=== PATIENT | male | born 1930 | race Caucasian/White ===

== ENCOUNTER 2018-02-16 11:24 | Outpatient (CLI) | payer MEDICARE, BC ==
[2018-02-16 13:08] LABS: Hemoglobin 15.1 g/dL (14.0-18.0); Mean Corpuscular HGB CONC 36.2 g/dL (32.0-36.0); Mean Corpuscular Hemoglobin 35.7 pg (27.0-31.0); Mean Corpuscular Volume 98.7 fL (78.0-98.0); Mean Platelet Volume 6.5 fL (7.4-10.4); Platelet Count 189 thou/uL (130-400); RBC Distribution Width 13.2 % (11.5-14.5); Red Blood Cell (RBC) Count 4.24 mill/uL (4.70-6.10); White Blood Cell (WBC) Count 8.6 thou/uL (4.8-10.8)
[2018-02-16 13:43] LABS: Anion Gap 14 mmol/L (10-20); BUN (Urea Nitrogen) 11 mg/dL (8.4-25.7); Calc. Creatinine Clearance 0 mL/min (70-130); Calcium 9.6 mg/dL (7.8-10.44); Carbon Dioxide 24 mmol/L (23-31); Chloride 104 mmol/L (98-107); Estimated GFR-MDRD 90; Glucose 99 mg/dL (83-110); Potassium 4.2 mmol/L (3.5-5.1); Sodium 138 mmol/L (136-145)
== END 2018-02-16 11:25 | disposition home or self-care (01) ==
LOC: LABBT 11:24
PROVIDERS: ATTEND Neurological Surgery
DX: Z01.812 Encounter for preprocedural laboratory examination (principal); M54.16 Radiculopathy, lumbar region
CPT/HCPCS: 80048; 85027

== ENCOUNTER 2018-02-22 09:00 | Day surgery (SDC) | payer MEDICARE, BC ==
[2018-02-16 12:02] VITALS: BMI 26.4
--- NOTE | 2018-02-22 00:48 | HP ---
HISTORY OF PRESENT ILLNESS: Mr. Mata is a very pleasant 88-year-old gentleman referred to us by Dr. Wilson for evaluation of right-sided lower extremity radiculopathy, mostly sitting in L4 pattern. He does seem to have what could be peripheral neuropathy in the way of a peroneal nerve impingement s yndrome. He does have an NCV that supports this. He denies any left lower extremity symptoms whatso ever. Pain is most significant with standing for periods of time and he feels that his back and legs are to lock up. He is able to exercise and go to the gym 5 days a week and actually feels . T emery, he has tried physical therapy and epidural steroid injections which do help the symptoms; howev er, not in any extended way. PAST MEDICAL HISTORY: Significant for glaucoma and hypertension. CURRENT MEDICATIONS: Diltiazem, Azopt, timolol and Travatan. ALLERGIES: POLLEN and IODINE. PAST SURGICAL HISTORY: Right knee replacement. PHYSICAL EXAMINATION: NEUROLOGIC: Patient is alert and oriented x3. Gait is mildly antalgic somewhat of an orthopedic gai t favoring the right leg when he did have total knee replacement a year ago. He has excellent motor strength bilaterally, 5/5 in all muscle groups in the lower extremities. He is negative for any clon us in the ankles bilaterally. Achilles and patellar reflexes are intact. Negative straight leg rais e bilaterally. Negative Jonah's test bilaterally. ASSESSMENT: Lumbar radiculopathy. PLAN: Dr. Salazar met with the patient, reviewed imaging ultimately advocated for an L4 and L5 decompr ession on the right. He explained to the patient the risks, benefits, alternatives of the procedure. The patient expressed understanding and would like to move forward with surgery as planned. I do charlotte pierce the patient is mentally competent and capable of making medical decisions for himself and we w ill move forward with surgery as planned. Ray Luong PA-C dictating for Dr. Salazar.
[2018-02-22] MEDS ORDERED: CEFAZOLIN/Water 2 GM/20 ML SYRINGE ONE ×2 (10:13→14:58)
[2018-02-22] MEDS ORDERED: Bupivacaine HCl 0.5%/Epinephrine 1:200,000/PF 30 ml Vial ONE (11:04)
[2018-02-22] MEDS ORDERED: Acetaminophen/Codeine 30-300mg Tablet ONE (13:50)
[2018-02-22] MEDS ORDERED: Lidocaine 1% PF 5 ML VIAL ONE (15:09)
[2018-02-22] MEDS ORDERED: PROPOFOL 200 MG/20 ML VIAL ONE (15:09)
[2018-02-22] MEDS ORDERED: ePHEDrine/0.9% NaCl/PF SYRINGE 50 mg/10 ml ONE (15:09)
--- NOTE | 2018-02-23 13:43 | OP ---
DATE OF PROCEDURE: 02/22/2018 SURGEON: Liban Salazar M.D. DRY KILN LOADER: Ray Luong PA-C. INDICATION: Pain. DIAGNOSES: Lumbar stenosis, lumbar radiculopathy. PROCEDURE: Right L4-5 facetectomy, decompression. ANESTHESIA: General. TECHNIQUE: The patient was brought into the operating room and placed under general anesthesia. He was flipped from a supine or prone position on the operating room table. A linear incision was plann ed over the L4-L5 segment. After prepping and draping and after an appropriate operative pause, the incision was created. The soft tissues were swept right of midline. A self-retaining retractor was placed in the wound for optimal exposure. After confirming the appropriate level with C-arm fluorosc opy, a high-speed cutting drill bit as well as 2, 3, and 4 mm Kerrisons used to perform a laminectomy along L4 and L5. The L4 and L5 pedicles were identified and a facetectomy was performed of the exit ing L4 nerve root until the exiting L4 nerve root was well-decompressed. The wound was irrigated. H emostasis was maintained throughout. The wound was then closed in anatomic layers and a pressure alla ssing was applied. There were no known procedural complications.
== END 2018-02-22 15:20 | disposition home or self-care (01) ==
LOC: SDC 09:00
PROVIDERS: ATTEND Neurological Surgery
PROC: 01NB0ZZ Release Lumbar Nerve, Open Approach (ICD-10-PCS; principal; 2018-02-22)
DX: M48.061 Spinal stenosis, lumbar region without neurogenic claudication (principal); M54.16 Radiculopathy, lumbar region; I10 Essential (primary) hypertension; H40.9 Unspecified glaucoma; Z91.041 Radiographic dye allergy status; Z79.82 Long term (current) use of aspirin; Z79.899 Other long term (current) drug therapy
CPT/HCPCS: 76001; 96374; J0670; J2001; J2704

== ENCOUNTER 2018-05-05 12:46 | Outpatient (CLI) | payer MEDICARE, BC ==
--- NOTE | 2018-05-05 14:49 | MRI ---
MRI OF THE LUMBAR SPINE: Date: 05-05-18 Comparison: None. History: Bilateral leg weakness. Numbness in bilateral hands, right greater than left, cervical radic ulopathy. Technique: Multiplanar, multisequence MR imaging of the cervical spine is provided without contrast. FINDINGS: The sagittal STIR imaging demonstrates no focal area of osseous marrow edema. There is mild edematous change on the basis of prominent degenerative facet disease on the right at C3-4. There is degenerative change at the atlantoaxial interspace. There is degenerative panus posterior to the dens. C2-3: There is disc desiccation with bilateral facet and uncal vertebral osteophyte formation. There is severe right and mild left neural foraminal stenosis. C3-4: There is disc space narrowing, disc desiccation and a disc osteophyte complex with severe centr al canal stenosis and a degree of cord compression. There is severe bilateral neural foraminal stenos is on the basis of facet uncal vertebral osteophyte formation. C4-5: Disc space narrowing, degenerative endplate change, anterior osteophyte formation and disc oste ophyte complex present with severe central canal stenosis. Severe bilateral neural foraminal stenosis on the basis of facet and uncal vertebral osteophyte formation noted. C5-6: Disc space narrowing, disc desiccation, degenerative endplate change and anterior osteophyte fo rmation and disc osteophyte complex present with severe central canal stenosis. There is severe bilat eral facet and uncal vertebral osteophyte formation with associated severe bilateral neural foraminal stenosis. C6-7: Anterolisthesis is noted measuring in the 4-5 mm range. There is disc space narrowing and disc desiccation. No significant central canal stenosis. Bilateral facet and uncal vertebral osteophyte fo rmation noted. Mild right and moderate/severe left neuroforaminal stenosis. C7-T1: There is disc desiccation and mild disc space narrowing. There is facet and uncal vertebral os teophyte formation, left greater than right. Mild right and moderate left neural foraminal stenosis. No significant central canal stenosis. There is subtle increased T2 signal intensity within the cervical cord posterior to the C3 vertebral body and at the axial level of the C3-4 intervertebral disc interspace. No discrete cord expansion is seen. IMPRESSION: Severe degenerative changes within the cervical spine with multilevel severe central canal and neural foraminal stenosis. There is also increased signal intensity within the cervical cord posterior to t he C3 vertebral body and at the axial level of the C3-4 intervertebral disc. This could represent mye lomalacia or cord edema on the basis of compressive myelopathy. Clinical correlation is essential. Claudia T
--- NOTE | 2018-05-05 18:21 | MRI ---
MRI LUMBAR SPINE NONCONTRAST: DATE: 05/05/18 HISTORY: 88-year-old male with low back pain and "persistent weakness, of lower extremities. Status post L4-5 facetectomy, decompression. COMPARISON: None. FINDINGS: All of the images are degraded by patient motion. The urinary bladder is distended. For the purposes of this report, it will be assumed that there are five lumbar type vertebrae. There are broad, irregu lar indentations of superior and inferior end plates associated with high grade disc space narrowing, and diffuse disc bulge/osteophytic bar complexes at L2-3, L3-4, L4-5, and L5-S1 that protrude into t he anterior aspect of the spinal canal. There are degenerative facet changes throughout the lumbar sp ine, which are mild to moderate at L2-3, moderate at L3-4, and moderate to severe at L4-5 and L5-S1. Conus medullaris terminates at L1-2. The findings by individual levels are as follows: T12-L1: No central or neural foraminal stenosis. Essentially normal. L1-2: Mild disc bulge. No central stenosis. Moderate bilateral neural foraminal stenosis. L2-3: Moderate to severe central spinal canal stenosis. Prominent posterior epidural fat pad. Very se tiarra thecal sac stenosis. Mild to moderate right neural foraminal stenosis. Moderate left neural fora camron stenosis. L3-4: Severe central spinal canal stenosis. Very severe thecal sac stenosis. Severe right neural fora camron stenosis. Moderate to severe left neural foraminal stenosis. L4-5: There is irregularly shaped fluid signal in the soft tissues of the right posterior paraspinal paramedian musculature, posterior to the right posterior elements. This is surrounded by edema in the soft tissues. Ligamentum flavum thickening. Right laminectomy and/or partial right facetectomy schultz es. Somewhat severe central spinal canal stenosis. Somewhat severe thecal sac stenosis also. Very sev ere right neural foraminal stenosis, with complete effacement of right neural foraminal fat signal. M oderate to severe left neural foraminal stenosis. There is bone marrow edema in the right pedicles of L4 and especially L5, and in the right L4 and L5 facet complex. There is fluid throughout the right L4-5 facet joint space. L5-S1: High grade lateral recess stenosis bilaterally. Moderate central spinal canal stenosis. Very s evere bilateral neural foraminal stenosis with chronic compression of bilateral exiting L5 nerve root s. IMPRESSION: 1. 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 2. Severe central spinal canal stenosis, severe neural foraminal stenosis, and severe lateral re cess stenosis, at multiple levels. 3. Soft tissue edema and right posterior element bone marrow edema, plus right facet joint effus ion, at L4-5, presumably representing recent right facetectomy/laminectomy changes and right facet ar thritis. Difficult to distinguish/ rule out superimposed infection from recent post surgical changes and facet arthritis. 4. The evaluation is limited without IV gadolinium contrast, such that it is very difficult to d istinguish recurrent or residual herniated disc material from postsurgical scar tissue. 5. Distended urinary bladder, raising the possibility of cauda equina syndrome. FAYE Fajardo POS: EITAN
== END 2018-05-05 12:47 | disposition home or self-care (01) ==
LOC: MRI 12:46
PROVIDERS: ATTEND Physical Medicine & Rehabilitation
DX: R53.1 Weakness (principal); I10 Essential (primary) hypertension; M47.896 Other spondylosis, lumbar region; M51.36 Other intervertebral disc degeneration, lumbar region; M48.061 Spinal stenosis, lumbar region without neurogenic claudication; M99.83 Other biomechanical lesions of lumbar region; R60.0 Localized edema; M25.48 Effusion, other site; N32.89 Other specified disorders of bladder; M47.892 Other spondylosis, cervical region; M48.02 Spinal stenosis, cervical region; M99.81 Other biomechanical lesions of cervical region; R93.7 Abnormal findings on diagnostic imaging of other parts of musculoskeletal system
CPT/HCPCS: 72141; 72148

== ENCOUNTER 2018-05-10 08:55 | Inpatient (IN) | payer MEDICARE, BC ==
--- NOTE | 2018-05-10 00:40 | HP ---
HISTORY OF PRESENT ILLNESS: Mr. Mata is a pleasant 88-year-old gentleman who is known to us for surgical decompression of the lumbar spine earlier this year for some right lower extremity weakness who unfortunately has had a protracted course of continued weakness, gait instabilities, and now most acutely some upper extremity dysfunction and weakness approximately in the bilateral upper extremiti es. He has been in and out of rehab and ultimately had an MRI of the cervical spine performed that r eveals profound cervical spine stenosis from C3 to C5 with signal change in the cord at C3-C4 and thi s also my explain his slow progression to recovery and his more recent myelopathic symptoms. PAST MEDICAL HISTORY: Glaucoma, hypertension. CURRENT MEDICATIONS: Diltiazem, Azopt, timolol, and Travatan. ALLERGIES: IODINE. PAST SURGICAL HISTORY: Right knee replacement and lumbar decompression. PHYSICAL EXAMINATION: The patient is alert and oriented x3. Gait is ataxic and unsteady. He is in a wheelchair during our discussions today. 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 He is only able to get to about the neutral position as he raises his arms up and has a significant amount of weakness to resistive move ment. He does have clumsiness with his fine motor control, but otherwise is well-appearing. ASSESSMENT: Cervical myelopathy. PLAN: Dr. Salazar met with the patient, reviewed imaging and advocated for a C3 through C5 posterior c ervical decompression. He explained to the patient the risks, benefits, and alternatives to the proc edure. The patient expressed understanding and would like to move forward with surgery as discussed.
[2018-05-10] MEDS ORDERED: CEFAZOLIN/Water 2 GM/20 ML SYRINGE ONE (09:13)
[2018-05-10] MEDS ORDERED: Midazolam HCl 2 mg/2 ml Vial ONE (09:35)
[2018-05-10] MEDS ORDERED: Fentanyl 100 MCG/2 ML VIAL ONE ×3 (09:35→14:19)
[2018-05-10] MEDS ORDERED: Bupivacaine HCl 0.5%/Epinephrine 1:200,000/PF 30 ml Vial ONE (11:27)
[2018-05-10] MEDS ORDERED: Thrombin 5000 UNITS/5 ML VIAL ONE (11:27)
[2018-05-10] MEDS ORDERED: Bacitracin Zinc Ointment 30 gm TUBE ONE (11:27)
--- NOTE | 2018-05-10 13:36 | OP ---
DATE OF PROCEDURE: 05/10/2018 SURGEON: Liban Salazar M.D. MOTOR EQUIPMENT SERGEANT: Celestino Luong PA-C INDICATION: Prevent neurologic decline. DIAGNOSIS: Cervical spondylitic myelopathy. PROCEDURE: Posterior cervical laminectomy C3-C5. ANESTHESIA: General. TECHNIQUE: The patient was brought into the operating room and placed under general anesthesia. A 3 -point Hagan ra was applied to his head where he was then flipped from a supine to a prone pos ition and secured to the table in a neutral position. A linear incision was planned over the posteri or aspect of the cervical spine. After prepping and draping and after an appropriate operative pause , the incision was created. The soft tissues were swept away from midline. Self-retaining retractor s were placed in the wound for optimal exposure. After confirming the appropriate levels with C-arm fluoroscopy, an Adson rongeur as well as 1 and 2 mm Kerrisons were used to perform a laminectomy exte nding from C3 through C5. After decompressing these segments, the wound was irrigated. Hemostasis w as maintained throughout. The wound was then closed in anatomic layers and a pressure dressing was a pplied. There were no known procedural complications.
--- NOTE | 2018-05-10 13:44 | PRG ---
DATE OF SERVICE: 05/10/2018 Mr. Mata is an 88-year-old gentleman known to me for a lumbar laminectomy for lumbar radicular pa in. In the postoperative setting, he had resolution of his pain symptoms. He was slow to get around in the postoperative setting and we advocated for inpatient rehab. He went to inpatient rehab and d uring his inpatient rehabilitation stay we were notified of progression of weakness that only involve d his legs, but also started to impact the upper extremities. This prompted an MRI of the cervical s pine which revealed a high grade cervical stenosis with underlying signal change within the cervical spine. Mr. Mata met with Ray Luong in our clinic and subsequently with me to discuss his d iagnosis, his imaging and the plan for surgery which is a posterior cervical decompression. Of note, today when meeting Mr. Mata, he feels like his symptoms have slightly improved, particul amada when he wears a cervical spine collar. It may be that he has some intrinsic spinal instability. Our plan from a surgical approach is a decompression without fusion. Of note, he has had a few fal ls in the last couple weeks, which may have been the inciting factor in his underlying spinal cord in jury. Our plan postoperatively will be admission to the hospital with plans towards return to inpatient [facility] in order to build his strength and endurance.
[2018-05-10] MEDS ORDERED: Milk Of Magnesia 30 ML UDCUP PO PRN (13:57)
[2018-05-10] MEDS ORDERED: Acetaminophen 325 MG TAB PO PRN (13:57)
[2018-05-10] MEDS ORDERED: Acetaminophen/Codeine 30-300mg Tablet PO PRN (13:57)
[2018-05-10] MEDS ORDERED: Ondansetron HCl/PF 4 MG/2 ML Vial IVP PRN (13:57)
[2018-05-10] MEDS ORDERED: diphenhydrAMINE 50 MG/ML VIAL IVP PRN (13:57)
[2018-05-10] MEDS: Acetaminophen/Codeine 30-300mg Tablet PO PRN ×2 (16:15→22:51)
[2018-05-10] MEDS: Sodium Chloride 0.9% 1,000 ML IV SCH (16:50)
[2018-05-10] MEDS ORDERED: Ondansetron HCl/PF 4 MG/2 ML Vial ONE (17:07)
[2018-05-10] MEDS ORDERED: Lidocaine 1% PF 5 ML VIAL ONE (17:07)
[2018-05-10] MEDS ORDERED: PROPOFOL 200 MG/20 ML VIAL ONE (17:07)
[2018-05-10] MEDS ORDERED: ePHEDrine/0.9% NaCl/PF SYRINGE 50 mg/10 ml ONE (17:07)
[2018-05-10] MEDS ORDERED: Dexamethasone 20 MG/5 ML VIAL ONE (17:07)
[2018-05-10 17:39] VITALS: BMI 26.4
[2018-05-10] MEDS: CEFAZOLIN/Water 2 GM/20 ML SYRINGE SLOW IVP SCH (19:53)
[2018-05-10] MEDS ORDERED: [UNRECOGNIZED DRUG - OTHER] PO SCH (22:45)
[2018-05-11] MEDS: Sodium Chloride 0.9% 1,000 ML IV SCH ×2 (03:46→17:15)
[2018-05-11] MEDS: CEFAZOLIN/Water 2 GM/20 ML SYRINGE SLOW IVP SCH (03:49)
[2018-05-11] MEDS: Tamsulosin HCl 0.4 MG CAP PO SCH (05:08)
[2018-05-11] MEDS: Polyethylene Glycol 3350 17 GM Packet PO SCH (09:46)
[2018-05-11] MEDS ORDERED: Polyethylene Glycol 3350 17 GM Packet PO SCH (11:00)
[2018-05-11] MEDS ORDERED: Sildenafil Citrate 20 MG TAB PO PRN (11:16)
[2018-05-11] MEDS ORDERED: Lorazepam 1 MG TAB PO PRN (11:19)
[2018-05-11] MEDS: Timolol 0.5% Ophth Soln 5 ml Bottle EA EYE SCH (12:52)
--- NOTE | 2018-05-11 14:38 | PQF ---
PATRICIA HUTCHISON JAMES BRADLEY MD [id number] SURG A- [id number] CLINICAL DOCUMENTATION IMPROVEMENT CLARIFICATION FORM: ICD-10 Updated PLEASE DO AN ADDENDUM TO THE PROGRESS NOTE WITH ANY DOCUMENTATION UPDATES OR ADDITIONS AND CARRY THROUGH TO DC SUMMARY. THANK YOU. DATE: 05/11/18 ATTN: Dr. Salazar Please exercise your independent, professional judgment in responding to the clarification form. Clinical indicators are provided on the bottom of this form for your review Please check appropriate box(s): [ X ] Spinal Edema Due to: [ X ] Cervical myelopathy [ ] Other diagnosis [ ] Unable to determine In addition, please specify: Present on Admission (POA): [ X ] Yes [ ] No [ ] Unable to determine For continuity of documentation, please document condition throughout progress notes and discharge summary. Thank You. CLINICAL INDICATORS - SIGNS / SYMPTOMS / LABS MRI findings per H&P reveals profound cervical spine stenosis from C3 to C5 with signal change in the cord at C3-C4 and this also may explain his slow progression to recovery and his more recent myelopathic symptoms. RISK FACTORS Of note, he has had a few falls in the last couple of weeks, which may have been the inciting factor in his underlying spinal cord injury. 05/10 (Martin) TREATMENTS: s/p Cervical laminectomy 05/10 per OP note PT/OT 05/10 orders Rehab consult 05/10 orders Thank you, Devorah (This form is maintained as a part of the permanent medical record) 2014 [employer]. All Rights Reserved Devorah Slaughter RN, BSN, [email or web address]
[2018-05-11] MEDS: Acetaminophen/Codeine 30-300mg Tablet PO PRN ×2 (15:00→21:07)
[2018-05-11] MEDS: Brinzolamide 1% Ophth Soln 10 ml Bottle EA EYE SCH ×2 (15:01→20:58)
[2018-05-11] MEDS: Baclofen 10 MG TAB PO PRN (17:16)
[2018-05-11] MEDS: Cephalexin 250 MG CAP PO SCH (20:58)
[2018-05-11] MEDS: [UNRECOGNIZED DRUG - OTHER] PO SCH (20:59)
[2018-05-11] MEDS ORDERED: Latanoprost 0.005% Ophth Soln 2.5 ml Bottle EA EYE SCH (21:00)
[2018-05-12] MEDS: Tamsulosin HCl 0.4 MG CAP PO SCH (05:46)
[2018-05-12] MEDS: Sodium Chloride 0.9% 1,000 ML IV SCH (06:04)
[2018-05-12] MEDS ORDERED: Lorazepam 1 MG TAB PO PRN ×2 (07:06→07:14)
[2018-05-12] MEDS ORDERED: SILDENAFIL CITRATE 20 MG PO PRN (07:06)
[2018-05-12] MEDS: Acetaminophen/Codeine 30-300mg Tablet PO PRN ×4 (07:39→20:24)
[2018-05-12] MEDS: Brinzolamide 1% Ophth Soln 10 ml Bottle EA EYE SCH ×3 (07:42→20:29)
[2018-05-12] MEDS: Timolol 0.5% Ophth Soln 5 ml Bottle EA EYE SCH (07:42)
[2018-05-12] MEDS: Cephalexin 250 MG CAP PO SCH ×2 (07:45→20:26)
[2018-05-12] MEDS: Polyethylene Glycol 3350 17 GM Packet PO SCH ×2 (07:46)
[2018-05-12] MEDS: Fluticasone Propionate Nasal Spray 16 gm Bottle NASAL SCH (07:46)
[2018-05-12] MEDS ORDERED: MOMETASONE FUROATE INH SCH (09:00)
[2018-05-12] MEDS ORDERED: TIMOLOL TOP SCH (09:00)
[2018-05-12] MEDS: Aspirin 81 mg Enteric Coated Tablet PO SCH (09:01)
[2018-05-12] MEDS ORDERED: Bisacodyl 5 MG TAB PO PRN (09:57)
--- NOTE | 2018-05-12 10:35 | PRG ---
DATE OF SERVICE: 05/12/2018 Mr. Mata is now postop day #2 following posterior cervical decompression. Overall, he is doing w ell. His ambulatory capabilities and strength in his bilateral upper extremities has improved tremen dously although he is still unsteady and requires walker for assistance. We are waiting on transitio n to rehab, which is anticipated for tomorrow. He does have some increased shoulder and neck pain wh ich is not unexpected given the approach for his surgery, there was some leaking from the bottom of t he incision yesterday, but his dressing is dry today. We will get the pads changed on his cervical c ollar as they are covered in some blood from yesterday. He has yet to have a bowel movement and is i nconsistently urinating. He did another in and out cath yesterday at 1600, though urinated by himsel f overnight. We will add some docusate to see if we might be able to get some of his bowel movements started today. Social Work feels like he might actually able to go to rehab today, but will still a nticipate tomorrow, but if he can go today then that would be fine by the neurosurgical team. I will put in his discharge medication list so that they can confirm with rehab that they are ready to go.
[2018-05-12] MEDS: Baclofen 10 MG TAB PO PRN (18:45)
[2018-05-12] MEDS: [UNRECOGNIZED DRUG - OTHER] PO SCH (20:34)
[2018-05-12] MEDS ORDERED: RAMELTEON 8 MG PO SCH (21:00)
[2018-05-12] MEDS ORDERED: Latanoprost 0.005% Ophth Soln 2.5 ml Bottle EA EYE SCH (21:00)
[2018-05-12] MEDS ORDERED: Non-Formulary Item 1 EACH (Travoprost [Travatan Z] 1 DROP) EA EYE SCH (21:00)
[2018-05-13] MEDS: Sodium Chloride 0.9% 1,000 ML IV SCH ×2 (01:57→07:12)
[2018-05-13] MEDS: Tamsulosin HCl 0.4 MG CAP PO SCH (06:30)
[2018-05-13] MEDS: Cephalexin 250 MG CAP PO SCH (08:16)
[2018-05-13] MEDS: Timolol 0.5% Ophth Soln 5 ml Bottle EA EYE SCH (08:17)
[2018-05-13] MEDS: Acetaminophen/Codeine 30-300mg Tablet PO PRN ×2 (08:18→12:44)
[2018-05-13 08:20] VITALS: BP 135/74
[2018-05-13] MEDS: Aspirin 81 mg Enteric Coated Tablet PO SCH (08:22)
[2018-05-13] MEDS: Polyethylene Glycol 3350 17 GM Packet PO SCH (08:22)
[2018-05-13] MEDS: Fluticasone Propionate Nasal Spray 16 gm Bottle NASAL SCH (08:23)
[2018-05-13] MEDS: Brinzolamide 1% Ophth Soln 10 ml Bottle EA EYE SCH (08:23)
[2018-05-13 10:30] VITALS: TEMP 97.8
== END 2018-05-13 13:15 | DRG 518 ==
LOC: SDC 08:55 → SURG A 15:03
PROVIDERS: ADMIT Neurological Surgery; ATTEND Neurological Surgery
PROC: 00NW0ZZ Release Cervical Spinal Cord, Open Approach (ICD-10-PCS; principal; 2018-05-10)
DX: M47.12 Other spondylosis with myelopathy, cervical region (principal); G95.19 Other vascular myelopathies; I10 Essential (primary) hypertension; R29.6 Repeated falls
CPT/HCPCS: 76001; G8978-GP-CL; G8979-GP-CI; G8987-GO-CL; G8988-GO-CJ; J0670; J1100; J2001; J2250; J2405; J2704; J3010

== ENCOUNTER 2018-06-02 07:28 | Inpatient (IN) | payer MEDICARE, BC ==
[2018-06-02 08:09] LABS: #Lymphocytes 0.8 thou/uL (1.20-3.40); #Monocytes 0.1 thou/uL (0.11-0.59); #Neutrophils 9.3 thou/uL (1.40-6.50); %Basophils 0.2 % (0.0-1.0); %Eosinophils 0.3 % (0.0-10.0); %Lymphocytes 7.4 % (21.0-51.0); %Monocytes 0.8 % (0.0-10.0); %Neutrophils 91.4 % (42.0-75.0); Hemoglobin 14.5 g/dL (14.0-18.0); Mean Corpuscular HGB CONC 35.3 g/dL (32.0-36.0); Mean Corpuscular Hemoglobin 32.9 pg (27.0-31.0); Mean Corpuscular Volume 93.3 fL (78.0-98.0); Mean Platelet Volume 6.5 fL (7.4-10.4); Platelet Count 204 thou/uL (130-400); RBC Distribution Width 12.1 % (11.5-14.5); White Blood Cell (WBC) Count 10.2 thou/uL (4.8-10.8)
[2018-06-02 08:09] LABS: Actual Bicarbonate (HCO3a) 16.6 mEq/L (22-28); Analyzer IN Cardio ER; Base Excess (BEa) -5.9 mEq/L (-2.0 to +3.0); Calcium, Ionized 1.09 mmol/L (1.12-1.30); Carboxyhemoglobin (COHb) 0.3 gm% (0.0-3.0); Hemoglobin (Hb) 13.1 g/dL (14.0-18.0); O2 Tension (PaO2) 192.9 mmHg (> 60.0); Potassium - ABG Lab 2.83 mmol/L (3.70-5.30); pH, Arterial 7.43 (7.35-7.45)
[2018-06-02 08:14] LABS: CO2 Tension 25.4 mmHg (35.0-45.0)
[2018-06-02 08:15] LABS: Puncture Site LRA
[2018-06-02 08:19] LABS: ALT (SGPT) 13 U/L (8-55); AST (SGOT) 20 U/L (5-34); Albumin 3.9 g/dL (3.4-4.8); Alkaline Phosphatase 75 U/L (40-150); Anion Gap 15 mmol/L (10-20); BUN (Urea Nitrogen) 18 mg/dL (8.4-25.7); Bilirubin, Total 1.9 mg/dL (0.2-1.2); CK (CPK) 78 U/L (30-200); Calc. Creatinine Clearance 0 mL/min (70-130); Calcium 8.8 mg/dL (7.8-10.44); Carbon Dioxide 16 mmol/L (23-31); Chloride 106 mmol/L (98-107); Estimated GFR-MDRD 84; Globulin 2.6 g/dL (2.4-3.5); Glucose 153 mg/dL (83-110); Potassium 3.3 mmol/L (3.5-5.1); Protein, Total 6.5 g/dL (5.8-8.1); Sodium 134 mmol/L (136-145)
[2018-06-02 08:34] LABS: CKMB 3.2 ng/mL (0-6.6)
[2018-06-02 08:37] LABS: Troponin I 0.531 ng/mL (< 0.028)
--- NOTE | 2018-06-02 08:42 | RAD ---
CHEST 1 VIEW PORTABLE: Date: 06/02/18 HISTORY: 88-year-old male with history of altered mental status, vomiting, incontinence and fever. Status post laminectomy. FINDINGS: Monitor leads overlie the chest. Heart size is within normal limits. There are some mild increased li near and interstitial markings bilaterally which have more of a chronic appearance. No confluent pneu monia, overt edema, or pleural effusion. IMPRESSION: No acute intrathoracic disease. Atherosclerosis of aorta with ectasia. POS: TPC
[2018-06-02 09:00] LABS: Bilirubin Negative (Negative); Blood, Urine Large (Negative); Clarity TURBID (Clear); Glucose, Urine (Dipstick) Negative (Negative); Leukocyte Large (Negative); Nitrite Positive (Negative); Protein, Urine (Dipstick) 30 mg/dL (Neg-Trace); Specific Gravity, Urine 1.012 (1.002-1.036); pH, Urine 5.5 (5.0-9.0)
[2018-06-02 09:02] LABS: Bacteria/HPF 4+ HPF (None Seen); Hyaline Casts/LPF 4-6 HYALINE CAST LPF (0-3 Hyaline); Pathc Cast-AUWi Flag 1.74 (0-2.49); Squamous Epithelial 0-3 HPF (0-3)
--- NOTE | 2018-06-02 09:02 | CT ---
HEAD CT NONCONTRAST: Date: 06/02/18 INDICATION: Altered mental status. FINDINGS: There is prominent size to the ventricular system. Moderate hypoattenuation is seen within the cerebr al white matter, indicating chronic ischemic disease. There are linear/curvilinear oriented hyperdens ities along the interhemispheric falx indicating calcification, in addition to scattered punctate int racranial calcifications, chronic in appearance. Bilateral ocular prostheses are present. There is mi ld mucosal thickening and paranasal sinuses. IMPRESSION: 1. No acute intracranial hemorrhage or mass effect. 2. Prominent size ventricles which likely relates to age-related parenchymal atrophy. 3. Moderate chronic ischemic disease. 4. Scattered intracranial calcifications, appearing chronic. POS: EITAN
[2018-06-02] MEDS ORDERED: Piperacillin/Tazobactam 4.5 GM VIAL ONE (09:11)
[2018-06-02] MEDS ORDERED: Vancomycin HCl 1.25 GM in Sodium Chloride 0.9% 250 ML 250 ML IVPB SCH (09:45)
[2018-06-02] MEDS ORDERED: Acetaminophen 325 MG Suppository ONE (09:51)
--- NOTE | 2018-06-02 09:56 | RAD ---
PELVIC RADIOGRAPH: 06/02/2018 PROVIDED CLINICAL HISTORY: Pelvic pain. FINDINGS: No evidence for fracture or other acute osseous abnormality. Alignment appears anatomic. Joint spac es appear preserved. Advanced lower lumbar degenerative changes are partially visualized. IMPRESSION: No evidence for an acute osseous abnormality. If there is persistent clinical concern, conservative management and follow-up imaging are advised. POS: Candis
--- NOTE | 2018-06-02 09:56 | RAD ---
RIGHT HIP RADIOGRAPHS TWO VIEWS: Date: 06-02-18 Provided Clinical History: Right hip pain. FINDINGS: There is no evidence for fracture or other acute osseous abnormality. If there is persistent clinical concern, conservative management and follow up imaging are advised. IMPRESSION: As above. POS: ZHANG
[2018-06-02] MEDS ORDERED: Norepinephrine 8 MG/0.9% NS 250 ML ONE (10:47)
[2018-06-02] MEDS ORDERED: Ondansetron PF 4 MG/2 ML Vial IVP PRN (11:35)
[2018-06-02] MEDS ORDERED: Norepinephrine 8 MG/0.9% NS 250 ML IVPB SCH (11:35)
[2018-06-02] MEDS ORDERED: CCU Electrolyte Replacement 1 EACH FS ONE (11:35)
[2018-06-02] MEDS ORDERED: Ondansetron ODT 4 MG TAB PO PRN (11:35)
[2018-06-02] MEDS ORDERED: Potassium Phosphate 15 MMOL in Sodium Chloride 0.9% 250 ML 250 ML IV PRN (11:44)
[2018-06-02] MEDS ORDERED: CCU ELECTROLYTE REPLACEMENT PROTOCOL FS PRN (11:44)
[2018-06-02] MEDS ORDERED: Magnesium 2 GM/NS 0.9% 100 ML 2 GM in Premix Bag 1 BAG IVPB PRN (11:44)
[2018-06-02] MEDS ORDERED: Potassium Chloride 40 MEQ in Premix Bag 1 BAG IVPB PRN (11:44)
[2018-06-02] MEDS ORDERED: Potassium Phosphate 12 MMOL in Sodium Chloride 0.9% 250 ML 250 ML IV PRN (11:44)
[2018-06-02] MEDS ORDERED: Potassium Chloride 40 MEQ in Sodium Chloride 0.9% 250 ML 250 ML IVPB PRN (11:44)
[2018-06-02] MEDS ORDERED: Magnesium Oxide 400 MG TAB PO PRN ×2 (11:44)
[2018-06-02] MEDS ORDERED: Potassium Phosphate 9 MMOL in Sodium Chloride 0.9% 100 ML IVPB PRN (11:44)
[2018-06-02 11:51] LABS: Troponin I 1.334 ng/mL (< 0.028)
--- NOTE | 2018-06-02 12:26 | CT ---
CT CHEST WITHOUT CONTRAST: Date: 06/02/18 HISTORY: Aspiration, fever, altered mental status. FINDINGS: Absence of IV contrast reduces the sensitivity of exam, particularly for evaluation of mediastinal, h ilar, and vascular structures. There are vascular calcifications without evidence of aneurysmal dilatation of the thoracic aorta. No pleural or pericardial effusions are seen. No pneumothoraces are identified. No lobar consolidation or lung masses/nodules are identified. There are mild infiltrates versus dependent atelectatic change s in the posterior lung guzmán. Upper abdominal tomograms demonstrate a nonobstructing tiny right renal calculus and an exophytic 6.3 cm left renal cyst. Degenerative changes are present in the spine. IMPRESSION: Dependent changes versus mild infiltrates in the posterior lung guzmán. POS: DEANNAH
[2018-06-02] MEDS: Sodium Chloride 0.9% 1,000 ML IV SCH ×6 (12:29→22:45)
[2018-06-02] MEDS: Cefepime 2 GM in Sodium Chloride 0.9% 100 ML IVPB SCH (12:29)
--- NOTE | 2018-06-02 12:38 | HP ---
DATE OF ADMISSION: 06/02/2018 PRIMARY CARE PROVIDER: Carissa Trevino M.D. CHIEF COMPLAINT: Altered mentation. HISTORY OF PRESENT ILLNESS: This is an 88-year-old male, who currently resides at [facility] inpatient rehabilitation status post posterior cervical laminectomy at C3 through C5, 05/10/2018. According to the patient's and son who were at the bedside, the patient was undergoing rehabilitation and general strengthening exercises at inpatient rehabilitation and was slated to return back home on 06/02/2018. The patient was apparently noted by nursing personnel at the rehab appearing normal approximately 6:40 a.m. on the date of admission with sudden onset of lethargy, unresponsiveness, incontinent of bowel and bladder as well as emesis in bed. EMS personnel were notified and noted the patient lethargic and minimally responsive. The patient apparently was opening his eyes to speech and name, but making incomprehensible sounds. Initial GCS score was 11. Family reports the patient has been doing well at inpatient rehabilitation, meeting all appropriate milestones and therapy goals. The patient denies taking any new medications, recent fall or injury. Reviewing emergency room records as well as discussions with the ER attending, the patient presented minimally responsive with elevated temperature of 103.2 degrees Fahrenheit rectally. The patient was noted meeting sepsis criteria and initiated on fluid resuscitation and antibiotics with vancomycin and Levaquin. The patient was noted hypotensive with the initial presentation of sepsis and treated for septic shock. The patient also received acetaminophen , lactated Ringer's as well as Zosyn in the emergency room. The patient's mentation had improved with volume resuscitation and general supportive management and antibiotic therapy according to family members. Due to the patient's hypotension in the emergency room, Levophed infusion was initiated in addition to IV fluids. The patient was transferred to the Critical Care Unit for further evaluation and monitoring. PAST MEDICAL HISTORY: 1. Lumbar and cervical radiculopathy/myelopathy. 2. Glaucoma. 3. Urinary retention, iatrogenic. 4. Hypertension. 5. Degenerative joint disease. PAST SURGICAL HISTORY: 1. Status post cataract removal. 2. Status post lumbar and cervical decompression. 3. Status post right total knee arthroplasty. CURRENT MEDICATIONS: 1. Azopt 1% one drop to each eye t.i.d. 2. Diltiazem CD 120 mg p.o. daily. 3. Pepcid 20 mg p.o. b.i.d. 4. Fluticasone 1 puff inhaled daily. 5. Tylenol No. 3, 300/30 mg 1 tab p.o. q.4-6 hours p.r.n. pain. 6. Multivitamin 1 tab p.o. daily. 7. Ramelteon 8 mg p.o. at bedtime p.r.n. 8. Sildenafil 20 mg p.o. p.r.n. 9. Flomax 0.4 mg p.o. daily. 10. Timolol maleate 0.5% ophthalmic solution 1 drop to each eye daily. 11. Travatan. ALLERGIES: IODINE. FAMILY HISTORY: No inheritable disease per patient report. SOCIAL HISTORY: The patient resides in [place], [place]. , accompanied by his and son in the Emergency Department. No current alcohol, tobacco or illicit drug use. Ambulatory with use of a cane or rolling walker. Retired. REVIEW OF SYSTEMS: The following complete review of systems was negative, unless otherwise mentioned in the HPI or below: Constitutional: Weight loss or gain, ability to conduct usual activities. Skin: Rash, itching. Eyes: Double vision, pain. ENT/Mouth: Nose bleeding, neck stiffness, pain, tenderness. Cardiovascular: Palpitations, dyspnea on exertion, orthopnea. Respiratory: Shortness of breath, wheezing, cough, hemoptysis, fever or night sweats. Gastrointestinal: Poor appetite, abdominal pain, heartburn, nausea, vomiting, constipation, or diarrhea. Genitourinary: Urgency, frequency, dysuria, nocturia. Musculoskeletal: Pain, swelling. Neurologic/Psychiatric: Anxiety, depression. Allergy/Immunologic: Skin rash, bleeding tendency. Otherwise negative except as stated per HPI. PHYSICAL EXAMINATION: VITAL SIGNS: On admission, blood pressure 76/48, pulse 101, respiratory rate 28 , temperature 103.2 degrees Fahrenheit rectally. O2 saturation 96% on 2 liters per minute by nasal cannula. GENERAL APPEARANCE: This is an 88-year-old male, opens eyes and responds to questions when directly engaged. HEENT: Pupils are equal, round and reactive to light and accommodation. Extraocular muscles are intact. No scleral icterus. No conjunctival injection. Nares patent. Bilious staining of his pimentel noted in the perioral distribution. Teeth in fair repair. Oral mucosa dry appearing. NECK: Supple. No cervical adenopathy, no thyromegaly, no carotid bruits, no JVD appreciated. Post-surgical changes of the posterior cervical spine noted. No erythema or fluctuance. CHEST: Lungs are clear to auscultation bilaterally. CARDIOVASCULAR: S1, S2 with 1-2/6 systolic ejection murmur in the apex. ABDOMEN: Rounded, soft, nontender, nondistended. Bowel sounds are positive in all four quadrants. There is no hepatosplenomegaly, no abdominal bruits, no rebound or guarding appreciated. EXTREMITIES: Warm and dry with poor skin turgor. Pulses are palpable distally at the dorsalis pedis, posterior tibial and popliteal arteries bilaterally. Capillary refill less than 2 seconds. NEUROLOGIC: Cranial nerves II-XII are grossly intact. Speech slow with mild dysarthria. No focal or lateralizing signs noted. Moves all extremities on command. GENITOURINARY: Viera catheter in place with turbid brown urine. PERTINENT LABORATORY AND X-RAY FINDINGS: Sodium 134, potassium 3.3, chloride 106, CO2 of 16, BUN 18, creatinine 0.86, estimated GFR of 84, glucose 153, lactic acid level 3.5, calcium 8.8, total bilirubin 1.9. LFTs within normal limits. Troponin I ranged between 0.531-1.33. Albumin 3.9. CBC showed a white blood cell count of 10.2, hemoglobin 14.5, hematocrit 41, platelet count 204,000 with 91% neutrophils. ABG dated 06/02/2018 showed pH of 7.43, pCO2 25.4 , pO2 193. Bicarb 17. O2 saturation 99% on 100% FiO2 from nonrebreather. Urinalysis dated 06/02/2018 showed large blood, positive nitrite, large leukocyte esterase with greater than 50 to too numerous to count WBCs per high power field, 4+ bacteria. Portable chest x-ray dated 06/02/2018 showed no acute cardiopulmonary process. CT of the brain without contrast dated 2017 showed prominent ventricles with moderate chronic ischemic white matter changes. No acute process identified. Two views of the right hip dated 2017 showed no acute process. Pelvic radiographs dated 06/02/2018 showed no acute process. EKG dated 06/02/2018 by my interpretation showed sinus mechanism with first degree AV block. Normal R-wave progression noted in the precordial leads. ST depression noted in leads V5, V6. ASSESSMENT AND PLAN: 1. Septic shock. The patient will be admitted to the critical care unit. Likely etiology, urinary source given initial urinalysis. We will continue IV antibiotic coverage with vancomycin and cefepime. Urine and blood cultures pending. We will continue aggressive fluid hydration. In addition, continue Levophed to maintain systolic blood pressure of 100 or greater. Continue general sepsis protocol and repeat lactic acid level. 2. Acute metabolic encephalopathy. Suspect secondarily to septic shock. We will continue treatment as outlined in number 1. Check prolactin level. 3. Elevated troponin I. Question of demand ischemia versus non-ST elevation myocardial infarction. We will continue to trend troponin I and consult Cardiology Service for surveillance. 4. Hypokalemia. We will continue CCU electrolyte replacement protocol. Potassium supplementation and repeat potassium level in the a.m. 5. Cervical spondylitic myelopathy. Status post cervical spine decompression . We will consult Neurosurgical Services for any further recommendations and monitoring. 6. Prophylaxis. Sequential compression devices while in bed. Pepcid 20 mg IV q.12 hours. PT evaluation when clinically stabilizing. 7. Code status is full. Surrogate medical decision maker is the patient's spouse. Total critical care time is 40 minutes. MTDD
[2018-06-02] MEDS: Potassium Chloride 20 MEQ in Premix Bag 1 BAG IVPB SCH ×2 (12:48→13:47)
[2018-06-02] MEDS ORDERED: Haloperidol Lactate 5 MG/ML VIAL IM PRN ×2 (16:07→16:10)
[2018-06-02] MEDS: Brinzolamide 1% Ophth Soln 10 ml Bottle EA EYE SCH ×2 (16:11→20:01)
[2018-06-02 16:21] LABS: Lactic Acid 1.8 mmol/L (0.5-2.2)
[2018-06-02] MEDS ORDERED: Aspirin 81 mg Enteric Coated Tablet PO SCH (18:30)
[2018-06-02] MEDS: Latanoprost 0.005% Ophth Soln 2.5 ml Bottle EA EYE SCH (20:01)
[2018-06-02] MEDS: Acetaminophen 500 MG TAB PO PRN (20:01)
[2018-06-02] MEDS ORDERED: Famotidine/PF 20 mg/2ml Vial SLOW IVP SCH (21:00)
[2018-06-02] MEDS ORDERED: Prevnar 13-Val Conj/PF 0.5 ML SYRINGE IM ONE (21:00)
[2018-06-02] MEDS ORDERED: Non-Formulary Item 1 EACH (Travoprost [Travatan Z] 1 DROP) EA EYE SCH (21:00)
[2018-06-02] MEDS: Vancomycin HCl 1.25 GM in Sodium Chloride 0.9% 250 ML 250 ML IVPB SCH (22:36)
--- NOTE | 2018-06-02 23:18 | CON ---
DATE OF CONSULTATION: 06/02/2018 HISTORY OF PRESENT ILLNESS: Sandeep Mata is a pleasant 88-year-old gentleman who has undergone lumbar spine and C-spine surgery recently. He is doing well, and it was anticipated that he was going home soon. He subsequently has been admitted to the ICU with confusion, fever, and hypotension that is improving with volume resuscitation. PAST MEDICAL AND SURGICAL HISTORY: Remarkable for glaucoma, history of urinary retention, history of hypertension, history of DJD, history of cataract surgery , history of surgeries recently and last history of a knee arthroplasty on the right. MEDICATIONS: Prior to admission, he was on Azopt eyedrops, Cardizem, Pepcid, fluticasone, ramelteon, sildanefil, Flomax, atenolol, and Travatan. ALLERGIES: Reports an IODINE allergy. FAMILY HISTORY: Negative for lung disease at an early age. REVIEW OF SYSTEMS: Ten points otherwise negative. His is at the bedside. He is nonsmoker, nondrinker. PHYSICAL EXAMINATION: VITAL SIGNS: Blood pressure 106/54, heart rate 93, respiratory rate 17, oximetry is 97. HEENT: Pupils are equal. Sclerae are anicteric. NECK: Supple. LUNGS: Clear. HEART: Regular rhythm. S1 and S2 are normal. ABDOMEN: Soft and nontender. EXTREMITIES: No clubbing, cyanosis, or edema. IMAGING: Recommended CT of chest to make sure he did not have a pneumonia behind his heart or diaphragm. The CT does not show any infiltrates. This was done without contrast. LABORATORY DATA: White count 10.2, hemoglobin 14.5, platelets 204,000. Sodium 134, potassium 3.3, chloride 106, bicarbonate 16, BUN 18, creatinine 0.86. Urinalysis was remarkable for greater than 50 white cells per high powered field. It must be noted that he had multiple straight catheterizations while he was in the hospital with urinary retention as a drug side effect. IMPRESSION: Probably urinary tract sepsis leading to his confusion, hypotension , fever and clinical decline. I agree with current broad-antimicrobial therapy and placement in the ICU. His feels he is much better than he was this morning, so hopefully will continue with improvement. This is a 70-minute consult greater than 50% of the time was spent on the unit coordinating care. KASSANDRA
[2018-06-03] MEDS: Cefepime 2 GM in Sodium Chloride 0.9% 100 ML IVPB SCH ×2 (00:16→11:32)
--- NOTE | 2018-06-03 01:05 | CON ---
CARDIOLOGY CONSULTATION DATE OF CONSULTATION: 06/02/2018 REASON FOR CONSULTATION: Sepsis pattern with increased troponin. HISTORY OF PRESENT ILLNESS: Mr. Sandeep Mata is a very pleasant 88-year-old gentleman. He recently had Neurosurgery. He was brought to the hospital and he was found to be unresponsive, found to have a sepsis-type pattern, it has been treated with antibiotics. He has some EKG changes as will be out lined below and some increased troponin level. The patient also had temperature of 103.2 rectally. The patient was given Levophed. No chest pain or pressure. PAST MEDICAL HISTORY: 1. Lumbar and cervical radiculopathy. 2. Glaucoma. 3. Urinary retention. 4. Hypertension. 5. Degenerative joint disease. 6. Sounds like he was seeing a countersinker in [place] for aortic stenosis. PAST SURGICAL HISTORY: 1. Previous cataract. 2. Previous lumbar and cervical decompression. MEDICATIONS: 1. Diltiazem CD 120 mg a day. 2. Tylenol No. 3. 3. Sildenafil. 4. Flomax. ALLERGIES: IODINE. FAMILY HISTORY: Negative for heart disease at a young age. REVIEW OF SYSTEMS: Constitutional: Positive for weakness, fatigue. Vision: No changes. Hearing: No changes. Pulmonary: No cough or wheezing. Gastrointestinal: No nausea, vomiting, or diarrhea. Skin: No rashes. Neurologic: No unilateral weakness or numbness. Psychiatric: No unusual depre ssion or anxiety. Hematologic: No unusual bruising. Genitourinary: No burning with urination. PHYSICAL EXAMINATION: GENERAL: This is an elderly gentleman who is now awake and alert, no complaints. VITAL SIGNS: Blood pressure 90/56, pulse 80. HEENT: Eyes: Sclerae nonicteric. Mouth mucous membranes moist. NECK: Supple. No lymphadenopathy. LUNGS: Clear. CARDIAC: Normal S1, normal S2. There is a 3/6 crescendo decrescendo murmur, loudest right upper rj rnal border. No diastolic murmur, no S3. ABDOMEN: Soft, nontender. EXTREMITIES: Warm, dry. No clubbing, cyanosis, or edema. PERTINENT LABORATORY AND X-RAY FINDINGS: Peak troponin is 1.6. There was an EKG done, which showed some ST depression in V5 and V6 with some PVCs. ASSESSMENT: 1. Sepsis pattern. 2. Increased troponin level, probably demand ischemia. 3. Aortic stenosis. PLAN: 1. Echocardiogram to be done tomorrow. 2. Supportive care including antibiotics and pressors as needed. 3. Repeat troponin tomorrow. 4. We will follow with you.
[2018-06-03 04:40] LABS: Mean Corpuscular HGB CONC 33.8 g/dL (32.0-36.0); Mean Corpuscular Hemoglobin 32.3 pg (27.0-31.0); Mean Corpuscular Volume 95.4 fL (78.0-98.0); Platelet Count 130 thou/uL (130-400); RBC Distribution Width 12.3 % (11.5-14.5); Red Blood Cell (RBC) Count 3.42 mill/uL (4.70-6.10); White Blood Cell (WBC) Count 16.5 thou/uL (4.8-10.8)
[2018-06-03 04:57] LABS: Band 10 % (5-11); Lymphocytes 9 % (21-51); MDiff Complete? YES; Monocytes 7 % (0-10); Neutrophil 74 % (42-75)
[2018-06-03 04:59] LABS: ALT (SGPT) 15 U/L (8-55); AST (SGOT) 32 U/L (5-34); Alkaline Phosphatase 65 U/L (40-150); Anion Gap 8 mmol/L (10-20); BUN (Urea Nitrogen) 13 mg/dL (8.4-25.7); Calc. Creatinine Clearance 89 mL/min (70-130); Calcium 8.2 mg/dL (7.8-10.44); Carbon Dioxide 21 mmol/L (23-31); Chloride 111 mmol/L (98-107); Estimated GFR-MDRD Greater than 90; Globulin 2.2 g/dL (2.4-3.5); Glucose 99 mg/dL (83-110); Potassium 3.4 mmol/L (3.5-5.1); Protein, Total 5.2 g/dL (5.8-8.1); Sodium 137 mmol/L (136-145)
[2018-06-03] MEDS: Sodium Chloride 0.9% 1,000 ML IV SCH ×3 (05:04→13:16)
[2018-06-03 05:13] LABS: Troponin I 1.751 ng/mL (< 0.028)
--- NOTE | 2018-06-03 08:43 | RAD ---
PORTABLE AP CHEST: Date: 06/03/18 HISTORY: Fever. Possible aspiration. Follow-up evaluation. COMPARISON: 06/02/18. FINDINGS: Cardiac silhouette and pulmonary vasculature within normal limits. There is nodular density overlying the left hilar region, which likely represents a pulmonary vessel on-end as no pulmonary nodule or m ass is seen in this region on recent CT thorax on 06/02/18. Lungs otherwise appear clear. No consolid ation or pleural fluid is seen. The inferior aspect of each lateral costophrenic angle is excluded fr om view. Vascular calcifications seen thoracic aorta. IMPRESSION: No acute cardiopulmonary process. POS: [facility]
[2018-06-03] MEDS: Famotidine 20 MG TAB PO SCH ×2 (09:42→20:00)
[2018-06-03] MEDS: Timolol 0.5% Ophth Soln 5 ml Bottle EA EYE SCH (09:42)
[2018-06-03] MEDS: Aspirin 81 mg Enteric Coated Tablet PO SCH (09:42)
[2018-06-03] MEDS: Brinzolamide 1% Ophth Soln 10 ml Bottle EA EYE SCH ×3 (09:43→20:00)
[2018-06-03] MEDS ORDERED: Tamsulosin HCl 0.4 MG CAP PO SCH (11:15)
[2018-06-03] MEDS ORDERED: Sodium Chloride 0.9% 1,000 ML IV SCH (11:44)
--- NOTE | 2018-06-03 11:50 | PDOC.PN ---
- Subjective Encounter Start Date: 06/03/18 Encounter Start Time: 11:50 Subjective: f/u for septic shock from E. coli UTI. Off Levophed support and continues -: IVF's. Feels better overall. Receiving Cefepime. - Objective Resuscitation Status: Resuscitation Status FULL:Full Resuscitation MAR Reviewed: Yes Vital Signs & Weight: Vital Signs (12 hours) Temp Pulse BP Pulse Ox 06/03/18 09:42 77 117/59 L 06/03/18 08:00 98.1 F 95 06/03/18 04:00 98.2 F 06/03/18 00:00 98.0 F Weight Weight 190 lb Most Recent Monitor Data Heart Rate from ECG 68 NIBP 126/68 NIBP BP-Mean 87 Respiration from ECG 20 SpO2 97 I&O: 06/02/18 06/03/18 06/04/18 06:59 06:59 06:59 Intake Total 5895 120 Output Total 1415 480 Balance 4480 -360 Result Diagrams: 06/03/18 03:15 06/03/18 03:15 Additional Labs: Microbiology 06/02/18 08:34 Urine mosher catheter Urine Culture - Preliminary Presumptive Escherichia coli 06/02/18 07:44 Venous blood - Right Hand Blood Culture - Preliminary Escherichia coli 06/02/18 07:44 Venous blood - Left Hand Blood Culture - Preliminary Presumptive Escherichia coli Laboratory Tests 06/02/18 06/02/18 06/02/18 07:44 07:44 07:44 WBC 10.2 Potassium 3.3 L Lactic Acid Troponin I 0.531 H* Prolactin Cortisol 06/02/18 06/02/18 06/02/18 07:44 11:06 11:51 WBC Potassium Lactic Acid 3.5 H 4.6 H* Troponin I 1.334 H* Prolactin Cortisol 06/02/18 06/02/18 06/02/18 11:51 13:41 15:58 WBC Potassium Lactic Acid 1.8 Troponin I 1.620 H* Prolactin 12.24 Cortisol 06/03/18 06/03/18 06/03/18 03:15 03:15 03:15 WBC 16.5 H Potassium Lactic Acid Troponin I 1.751 H* Prolactin Cortisol 14.20 Radiology Reviewed by me: Yes (2D echo - EF 55-60%, severe ) EKG Reviewed by me: Yes (Tele - SR) Phys Exam - Physical Examination Constitutional: NAD HEENT: PERRLA, sclera anicteric, oral pharynx no lesions Neck: no nodes, no JVD, supple, full ROM Respiratory: no wheezing, no rales, no rhonchi, clear to auscultation bilateral II/ JAMEEL in RUSB, S1, S2 Cardiovascular: RRR, no rub, gallop Gastrointestinal: soft, non-tender, no distention, positive bowel sounds Musculoskeletal: no edema, pulses present Neurological: normal sensation, moves all 4 limbs Psychiatric: A&O x 3 Skin: normal turgor, cap refill <2 seconds Dx/Plan (1) Septic shock due to Escherichia coli Code(s): A41.51 - SEPSIS DUE TO ESCHERICHIA COLI [E. COLI]; R65.21 - SEVERE SEPSIS WITH SEPTIC SHOCK Status: Acute Comment: continue Cefepime pending final sensitivities, decrease IVF's 100ml/h (2) E. coli UTI Code(s): N39.0 - URINARY TRACT INFECTION, SITE NOT SPECIFIED; B96.20 - UNSP ESCHERICHIA COLI THE CAUSE OF DISEASES CLASSD ELSWHR Status: Acute Comment: Likely due to recent catheter insertions and retention likely iatrogenic, continue Cefepime, Mosher for bladder decompression, Flomax daily (3) Acute metabolic encephalopathy Code(s): G93.41 - METABOLIC ENCEPHALOPATHY Status: Acute Comment: Improved with tx for sepsis (4) Elevated troponin I level Code(s): R74.8 - ABNORMAL LEVELS OF OTHER SERUM ENZYMES Status: Acute Comment: Likely due to demand ischemia in context of sepsis (5) Hypokalemia Code(s): E87.6 - HYPOKALEMIA Status: Acute Comment: KCL supplementation with CCU protocol (6) Aortic stenosis, severe Code(s): I35.0 - NONRHEUMATIC AORTIC (VALVE) STENOSIS Status: Chronic Comment: Chronic, supportive mgmt - Plan plan discussed w/ family, continue antibiotics, PT/OT, social studies department chair, out of bed/ambulate, DVT proph w/SCDs Stabilizing currently -: Continue Cefepime -: Vancomycin d/c'd -: Decrease IVF's 100ml/h -: Off Levophed * AM lab: CMP, CBC
[2018-06-03] MEDS: Vancomycin HCl 1.25 GM in Sodium Chloride 0.9% 250 ML 250 ML IVPB SCH (11:58)
--- NOTE | 2018-06-03 13:12 | PRG ---
DATE OF SERVICE: 06/03/2018 Mr. Mata is looking much better today, much more awake and alert, no chest pain, no shortness of breath. His respiratory rate is up slightly. PHYSICAL EXAMINATION: VITAL SIGNS: Blood pressure 126/68, respiratory rate is 20. LUNGS: Clear. CARDIAC: There is an aortic stenosis murmur as before. ABDOMEN: Soft, nontender. EXTREMITIES: No edema. Echocardiogram showed normal left ventricular function with severe aortic stenosis. ASSESSMENT: 1. Recent neurosurgery. 2. Severe aortic stenosis. 3. Episode of sepsis appears to be urosepsis. PLAN: 1. He is on intravenous antibiotics. 2. Increased troponin, probably demand ischemia due to aortic stenosis with sepsis. We will reduce sodium chloride infusion. 3. Continue low dose aspirin. 4. I explained to the patient likely within the fairly near future, he will likely need valve replac ement, most likely transcutaneous aortic valve replacement. He looked like he would not be a good ca ndidate for open heart surgery. Obviously, this cannot be done until all infection is cleared, but s uspect likely within the next year he may need a valve replacement. We will sign off at this point, my partners will be available this Thursday and then during the weekend if needed. The patient has a faculty physician in [place] for followup.
[2018-06-03] MEDS: Potassium Chloride 20 MEQ TAB PO PRN (13:16)
--- NOTE | 2018-06-03 13:35 | CON ---
DATE OF CONSULTATION: 06/03/2018 HISTORY OF PRESENT ILLNESS: This is an 88-year-old white male I was asked to see today by Dr. Cárdenas. He was admitted yesterday with sepsis from a urinary tract source. He was in the ICU in bed C10. He has had a couple of recent neurosurgical procedures. He had a procedure by Dr. Salazar on 8 and that was a right L4-L5 facetectomy with decompression for lumbar stenosis and radiculopathy and then he had most recently on the of this past month of April, he had a posterior cervical brush inectomy C3 through C5. He was at the rehab facility and really doing well. They are looking forwar d to going home, but he developed a fever, chills and disorientation yesterday and was sent here and found to be basically in septic shock. I think he was actually on Levophed for part of the day yeste rday, but I do not believe he is on it anymore. He had a Viera catheter placed in the emergency room here. Apparently, on talking with him and the nursing staff here and per Dr. Cárdenas's information, jadyn ocasio was having trouble urinating at rehabilitation and he had been in and out cathed a few times, but m ost recently he says he thought he has been urinating okay and he believes they had stopped doing the in and out catheterizations. He has been started on Flomax and it is unclear if he has always been on Flomax or not, but it looks like he has not been on it recently, but was just started on it, I bel ieve, yesterday. His baseline lower urinary tract symptoms have been mainly getting up at night a co uple of times, having to sit to void, some decreased force of stream, but feeling like he has emptied okay. To his knowledge, he has not had urinary tract infection, stone disease or blood in his urine in the past. He has never had prostate cancer, prostate surgery and has no family history of prosta te surgery. He has had in and out catheterization before, some related to surgeries, but only more r ecently related to some difficulty with emptying and this probably was just while he is at the rehab facility. He also has a history of a knee replacement that was done, I guess, it looks like probably a few years ago. PAST MEDICAL HISTORY: He is a patient of Dr. Jazmyn Aguillon and he does have some high blood pressur e. He has glaucoma. ALLERGIES: IODINE. PAST SURGICAL HISTORY: Also includes either knee replacement or knee surgery and cataract surgery an d lumbar then cervical back procedures, cervical being the most recent. PHYSICAL EXAMINATION: GENERAL: He does not have any flank tenderness. ABDOMEN: Soft and nontender. The bladder is not distended. GENITOURINARY: The penis is circumcised. There are no lesions. Urine is clear. The testicles are descended. There is nothing to suggest epididymitis or orchitis. There is nothing to suggest a abe urethral abscess. There is no fluctuance or erythema along the scrotum or perineum. The rectal exam reveals normal tone. Prostate is not significantly enlarged, but moderately enlarged. There is no fluctuance on exam or excessive tenderness. There is normal rectal tone. There is normal bulbocaver nosus reflex and there is normal voluntary anal contraction. He has what appears to be normal sensat ion in the perineum to light touch and in his lower extremities. He is weak in his lower extremities . This may just be related to his need for rehabilitation. IMPRESSION: Sepsis, likely related to urinary tract source. He had got an Escherichia coli growing in his blood and urine. The sensitivities are pending. He is currently on cefepime. He also receiv ed some vancomycin before he came in. So, we will need to keep him on cefepime to see what grows as the final cultures come back. I think we should leave the catheter in for the time being, probably f or the next couple of days. He just started the Flomax. It is going to take a while for that to ki k in and he was not urinating well prior to coming over, so at least another couple days, maybe longe r or to leave this catheter in until get some strength back to make sure we know which antibiot ic is the correct one and let the Flomax get on board for 2-3 days. I will follow along with you. A t this point, it does not appear that he has any indication for an upper tract study with a CAT scann ing. He has got nothing to suggest that he has got an obstructed kidney with an associated infection as a cause of his sepsis.
--- NOTE | 2018-06-03 17:31 | PRG ---
DATE OF SERVICE: 06/03/2018 SUBJECTIVE: Mr. Mata had markedly improved mental status this morning. He has E. coli grown fro m urine and both blood cultures. OBJECTIVE: VITAL SIGNS: His blood pressure is stable, is 139/74; heart rates in the 70s; respiratory rates in t he low 20s. LUNGS: Remarkable for coarse equal breath sounds. HEART: Regular rhythm. S1 and S2 are normal. No S3. ABDOMEN: Soft and nontender. EXTREMITIES: Without clubbing, cyanosis, or edema. He denies flank or abdominal pain leading up to this illness. LABORATORY DATA: White count 16.5, hemoglobin 11, platelets 130,000. Sodium 137, potassium 3.4, chl oride 111, bicarbonate 21, BUN 13, creatinine 0.73. His says he was on Flomax prior to admission for his surgery, but this was not continued. I hav e restarted this. I have consulted Urology. He will continue antimicrobial therapy that can be pared down once sensitivities are back.
[2018-06-03] MEDS: Acetaminophen 500 MG TAB PO PRN (20:00)
[2018-06-03] MEDS: Latanoprost 0.005% Ophth Soln 2.5 ml Bottle EA EYE SCH (20:00)
[2018-06-04] MEDS: Cefepime 2 GM in Sodium Chloride 0.9% 100 ML IVPB SCH (00:28)
[2018-06-04 04:55] LABS: ALT (SGPT) 17 U/L (8-55); AST (SGOT) 27 U/L (5-34); Albumin 3.1 g/dL (3.4-4.8); Alkaline Phosphatase 67 U/L (40-150); Anion Gap 8 mmol/L (10-20); BUN (Urea Nitrogen) 11 mg/dL (8.4-25.7); Bilirubin, Total 0.8 mg/dL (0.2-1.2); Calc. Creatinine Clearance 94 mL/min (70-130); Calcium 8.3 mg/dL (7.8-10.44); Carbon Dioxide 23 mmol/L (23-31); Chloride 106 mmol/L (98-107); Estimated GFR-MDRD Greater than 90; Globulin 2.4 g/dL (2.4-3.5); Glucose 105 mg/dL (83-110); Potassium 3.4 mmol/L (3.5-5.1); Protein, Total 5.5 g/dL (5.8-8.1); Sodium 134 mmol/L (136-145)
[2018-06-04 05:01] LABS: Critical Call Chem Troponin I RESULT DECREASING
[2018-06-04 05:03] LABS: Band 15 % (5-11); Eosinophils 1 % (0-10); Hemoglobin 11.1 g/dL (14.0-18.0); Lymphocytes 6 % (21-51); MDiff Complete? YES; Mean Corpuscular HGB CONC 33.9 g/dL (32.0-36.0); Mean Corpuscular Hemoglobin 32.1 pg (27.0-31.0); Mean Corpuscular Volume 94.7 fL (78.0-98.0); Mean Platelet Volume 7.4 fL (7.4-10.4); Monocytes 5 % (0-10); Neutrophil 73 % (42-75); PLT Morphology Comment Appears Decreased; Platelet Count 118 thou/uL (130-400); RBC Distribution Width 12.2 % (11.5-14.5); Red Blood Cell (RBC) Count 3.47 mill/uL (4.70-6.10); White Blood Cell (WBC) Count 10.3 thou/uL (4.8-10.8)
[2018-06-04] MEDS: Aspirin 81 mg Enteric Coated Tablet PO SCH (08:55)
[2018-06-04] MEDS: Famotidine 20 MG TAB PO SCH ×2 (08:56→21:32)
[2018-06-04] MEDS: Potassium Chloride 20 MEQ TAB PO PRN (08:56)
[2018-06-04] MEDS: Tamsulosin HCl 0.4 MG CAP PO SCH (08:56)
[2018-06-04] MEDS: Brinzolamide 1% Ophth Soln 10 ml Bottle EA EYE SCH ×3 (08:58→21:32)
[2018-06-04] MEDS ORDERED: Tamsulosin HCl 0.4 MG CAP PO SCH (09:00)
[2018-06-04] MEDS: Timolol 0.5% Ophth Soln 5 ml Bottle EA EYE SCH (09:17)
[2018-06-04] MEDS: Sodium Chloride 0.9% 1,000 ML IV SCH (09:19)
[2018-06-04] MEDS: Acetaminophen 500 MG TAB PO PRN ×3 (09:29→21:31)
--- NOTE | 2018-06-04 10:00 | PRG ---
DATE OF SERVICE: 06/04/2018 Sandeep Mata has no complaints. He is still a little intermittently tachypneic. I suspect some of this is secondary to deconditioning with 2 recent surgeries. Physical therapy needs to start workin g with him again. PHYSICAL EXAMINATION: VITAL SIGNS: His blood pressure stabilized, it is 135/88, heart rate in the 80s. He is afebrile, re spiratory rate is 18. LUNGS: Clear. HEART: Regular rhythm. ABDOMEN: Soft. LABORATORY DATA: White count is 10.3, hemoglobin 11.1, platelets 118,000. Sodium 134, potassium 3.4 , chloride 106, bicarb 22, BUN 11, creatinine 0.69. IMPRESSION: 1. Escherichia coli urinary tract sepsis. Sensitivities are back and this is a quinolone sensitive E. coli so he will be started on p.o. Levaquin and his cefepime will be stopped. 2. Status post cervical spine and lumbar spine surgery. He was close to discharge from rehab when h e became septic. 3. Status post urinary retention with multiple in and out catheterizations which is probably what le d to his E. coli bladder infection. I suspect he continued to have some degree of urinary retention. Urology has been consulted. 4. Elevated troponin is likely stress mediated. PLAN: Transfer to the Intermediate Care Unit. Begin physical therapy.
--- NOTE | 2018-06-04 12:32 | PDOC.PN ---
- Subjective Encounter Start Date: 06/04/18 Encounter Start Time: 12:30 Subjective: f/u for E. coli UTI with sepsis. Feeling better overall. Still remains -: weak. Appetite improved. - Objective Resuscitation Status: Resuscitation Status FULL:Full Resuscitation MAR Reviewed: Yes Vital Signs & Weight: Vital Signs (12 hours) Temp Pulse Resp BP BP Pulse Ox 06/04/18 11:04 98.5 F 71 18 114/69 97 06/04/18 09:17 84 06/04/18 09:00 100 06/04/18 08:32 99.8 F H 84 18 135/88 100 06/04/18 07:21 96 06/04/18 07:10 98 06/04/18 04:00 98.5 F Weight Weight 190 lb Most Recent Monitor Data Heart Rate from ECG 65 NIBP 140/65 NIBP BP-Mean 90 Respiration from ECG 20 SpO2 97 I&O: 06/03/18 06/04/18 06/05/18 06:59 06:59 06:59 Intake Total 5895 758 Output Total 5024 2735 Balance 0 Result Diagrams: 06/04/18 04:00 06/04/18 04:00 Additional Labs: Microbiology 06/02/18 08:34 Urine mosher catheter Urine Culture - Preliminary Presumptive Escherichia coli 06/02/18 07:44 Venous blood - Right Hand Blood Culture - Preliminary Escherichia coli 06/02/18 07:44 Venous blood - Left Hand Blood Culture - Preliminary Presumptive Escherichia coli Laboratory Tests 06/02/18 06/02/18 06/02/18 07:44 07:44 07:44 WBC 10.2 Potassium 3.3 L Lactic Acid Troponin I 0.531 H* Prolactin Cortisol 06/02/18 06/02/18 06/02/18 07:44 11:06 11:51 WBC Potassium Lactic Acid 3.5 H 4.6 H* Troponin I 1.334 H* Prolactin Cortisol 06/02/18 06/02/18 06/02/18 11:51 13:41 15:58 WBC Potassium Lactic Acid 1.8 Troponin I 1.620 H* Prolactin 12.24 Cortisol 06/03/18 06/03/18 06/03/18 03:15 03:15 03:15 WBC 16.5 H Potassium Lactic Acid Troponin I 1.751 H* Prolactin Cortisol 14.20 EKG Reviewed by me: Yes (Tele - SR) Phys Exam - Physical Examination Constitutional: NAD HEENT: PERRLA, sclera anicteric, oral pharynx no lesions Neck: no nodes, no JVD, supple, full ROM Respiratory: no wheezing, no rales, no rhonchi, clear to auscultation bilateral II/ JAMEEL, S1, S2 Cardiovascular: RRR, no rub, gallop Gastrointestinal: soft, non-tender, no distention, positive bowel sounds Musculoskeletal: no edema, pulses present Neurological: normal sensation, moves all 4 limbs Psychiatric: A&O x 3 Skin: normal turgor, cap refill <2 seconds Dx/Plan (1) Septic shock due to Escherichia coli Code(s): A41.51 - SEPSIS DUE TO ESCHERICHIA COLI [E. COLI]; R65.21 - SEVERE SEPSIS WITH SEPTIC SHOCK Status: Acute Comment: Improving, Cefepime d/c'd, Levaquin 750mg po daily (2) E. coli UTI Code(s): N39.0 - URINARY TRACT INFECTION, SITE NOT SPECIFIED; B96.20 - UNSP ESCHERICHIA COLI THE CAUSE OF DISEASES CLASSD ELSWHR Status: Acute Comment: Likely due to recent catheter insertions and retention likely iatrogenic, continue Levaquin, Mosher for bladder decompression, Flomax daily (3) Acute metabolic encephalopathy Code(s): G93.41 - METABOLIC ENCEPHALOPATHY Status: Acute Comment: Improved with tx for sepsis (4) Elevated troponin I level Code(s): R74.8 - ABNORMAL LEVELS OF OTHER SERUM ENZYMES Status: Acute Comment: Likely due to demand ischemia in context of sepsis (5) Hypokalemia Code(s): E87.6 - HYPOKALEMIA Status: Acute Comment: KCL supplementation, repeat K+ level in am (6) Aortic stenosis, 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
[2018-06-04] MEDS ORDERED: Potassium Chloride 20 MEQ TAB PO SCH (12:45)
--- NOTE | 2018-06-04 14:17 | PRG ---
DATE OF SERVICE: 06/04/2018 The patient is doing better today. He has been moved from the ICU to the step-down unit B6. H is vital signs are stable. He has had just a low-grade temperature. His white count is normal. His creatinine is normal. His catheter draining clear urine and he is more comfortable. His is he re with him today, so I was able talked with her. His urine culture and blood cultures have shown E. coli that has some resistance noted, although it is still sensitive to quinolones oral agent t hat he could eventually be switched to and go home on. I would recommend that we leave his Viera cat heter in over the weekend that will give him 2 additional days of Flomax on board, maybe look at jericho ng him a voiding trial on Thursday morning. I think this would better than taking the catheter out now and having to deal with in and out catheterizations over the weekend if he is unable to urinate and he is just apparently had just only a couple of doses of Flomax this time around. I talked with the and the patient about that and they both comfortable with it. I maybe away this week and Dr. Henry is covering for me and if an urologist is needed over the weekend please contact her. Oth susannah, just leave the catheter in and get a voiding trial on Thursday. He could certainly be switched to just a quinolone antibiotic, it looks like either IV for the next couple of days and then p.o. th at would appear to cover this organism.
[2018-06-04] MEDS: Potassium Chloride 20 MEQ TAB PO SCH (17:24)
[2018-06-04] MEDS: Latanoprost 0.005% Ophth Soln 2.5 ml Bottle EA EYE SCH (21:32)
[2018-06-04] MEDS ORDERED: Lorazepam 0.5 MG TAB PO SCH (23:00)
[2018-06-05 03:53] LABS: Band 9 % (5-11); Eosinophils 1 % (0-10); Hemoglobin 11.2 g/dL (14.0-18.0); Lymphocytes 5 % (21-51); MDiff Complete? YES; Mean Corpuscular HGB CONC 34.7 g/dL (32.0-36.0); Mean Corpuscular Hemoglobin 32.1 pg (27.0-31.0); Mean Corpuscular Volume 92.4 fL (78.0-98.0); Mean Platelet Volume 7.2 fL (7.4-10.4); Monocytes 8 % (0-10); Neutrophil 76 % (42-75); Platelet Count 132 thou/uL (130-400); Reactive Lymphocytes 1 % (0-10); Red Blood Cell (RBC) Count 3.48 mill/uL (4.70-6.10)
[2018-06-05 04:01] LABS: ALT (SGPT) 20 U/L (8-55); AST (SGOT) 26 U/L (5-34); Albumin 3.2 g/dL (3.4-4.8); Alkaline Phosphatase 54 U/L (40-150); Anion Gap 8 mmol/L (10-20); BUN (Urea Nitrogen) 7 mg/dL (8.4-25.7); Bilirubin, Total 0.8 mg/dL (0.2-1.2); Calc. Creatinine Clearance 110 mL/min (70-130); Calcium 8.4 mg/dL (7.8-10.44); Carbon Dioxide 25 mmol/L (23-31); Chloride 103 mmol/L (98-107); Estimated GFR-MDRD Greater than 90; Globulin 2.3 g/dL (2.4-3.5); Glucose 105 mg/dL (83-110); Potassium 3.4 mmol/L (3.5-5.1); Protein, Total 5.5 g/dL (5.8-8.1); Sodium 133 mmol/L (136-145)
[2018-06-05] MEDS: Sodium Chloride 0.9% 1,000 ML IV SCH (05:41)
[2018-06-05] MEDS: Aspirin 81 mg Enteric Coated Tablet PO SCH (09:19)
[2018-06-05] MEDS: Potassium Chloride 20 MEQ TAB PO SCH ×2 (09:19→16:50)
[2018-06-05] MEDS: Tamsulosin HCl 0.4 MG CAP PO SCH (09:19)
[2018-06-05] MEDS: Famotidine 20 MG TAB PO SCH (09:19)
[2018-06-05] MEDS: Brinzolamide 1% Ophth Soln 10 ml Bottle EA EYE SCH ×3 (09:20→22:19)
[2018-06-05] MEDS: Timolol 0.5% Ophth Soln 5 ml Bottle EA EYE SCH (09:25)
--- NOTE | 2018-06-05 13:18 | PRG ---
DATE OF SERVICE: 06/05/2018 SERVICE: Pulmonary Medicine. INTERVAL HISTORY: The patient is doing really well from a respiratory standpoint. He denies having any chest pain. There are no events overnight. Otherwise, there has been no interval change to his condition. He still feels a little bit weak. That being said, strength is coming back to him. He does have urinary retention. As such, he continues to have a Viera catheter. PHYSICAL EXAMINATION: VITAL SIGNS: Afebrile with a T-max of 99.0, pulse 75, blood pressure 140/74, respirations 18, saturation 95% on room air. GENERAL: The patient is awake, alert, no apparent distress. LUNGS: Excellent air entry. There are some dependent crackles, which are minimal. No prolonged expiratory phase or wheezing is appreciated. HEART: Normal rate, regular. ABDOMEN: Soft, nontender, nondistended. Bowel sounds are positive. MUSCULOSKELETAL: No cyanosis or clubbing. No pitting in the bilateral lower extremities. NEUROLOGIC: Grossly nonfocal. LABORATORY DATA: WBC 8.0, hemoglobin 11.2, platelets 132,000. Basic metabolic profile is otherwise unremarkable with a band count is improving to 9%. Basic metabolic profile and liver function studies are also unremarkable. Cardiac enzymes are down trending. E. coli is growing in 2 out of 2 blood cultures, and urine culture. ASSESSMENT: 1. Septic shock. 2. Urinary tract infection secondary to Escherichia coli with urine retention. 3. Bacteremia secondary to Escherichia coli. 4. Non-ST elevation myocardial infarction. DISCUSSION AND PLAN: We will continue antibiotics and other supportive care. At this point, the patient is stable for transition to the telemetry unit. We will continue to follow along. KASSANDRA
--- NOTE | 2018-06-05 14:18 | PDOC.PN ---
- Subjective Encounter Start Date: 06/05/18 Encounter Start Time: 14:10 Subjective: f/u for E. coli UTI with sepsis on current Levaquin. Feeling better overall -: working with PT. - Objective Resuscitation Status: Resuscitation Status FULL:Full Resuscitation MAR Reviewed: Yes Vital Signs & Weight: Vital Signs (12 hours) Temp Pulse Resp BP BP Pulse Ox 06/05/18 10:59 99.0 F 75 18 140/74 95 06/05/18 09:25 88 121/76 06/05/18 08:46 94 L 06/05/18 08:00 95 06/05/18 07:28 98.3 F 82 19 129/79 95 06/05/18 03:37 98.0 F 73 24 H 132/75 94 L Weight Weight 190 lb Most Recent Monitor Data Heart Rate from ECG 65 NIBP 140/65 NIBP BP-Mean 90 Respiration from ECG 20 SpO2 97 I&O: 06/04/18 06/05/18 06/06/18 06:59 06:59 06:59 Intake Total 758 1863 120 Output Total 3964 3520 Balance -1976 120 Result Diagrams: 06/05/18 03:14 06/05/18 03:14 Additional Labs: Microbiology 06/02/18 08:34 Urine mosher catheter Urine Culture - Preliminary Presumptive Escherichia coli 06/02/18 07:44 Venous blood - Right Hand Blood Culture - Preliminary Escherichia coli 06/02/18 07:44 Venous blood - Left Hand Blood Culture - Preliminary Presumptive Escherichia coli Laboratory Tests 06/02/18 06/02/18 06/02/18 07:44 07:44 07:44 WBC 10.2 Potassium 3.3 L Lactic Acid Troponin I 0.531 H* Prolactin Cortisol 06/02/18 06/02/18 06/02/18 07:44 11:06 11:51 WBC Potassium Lactic Acid 3.5 H 4.6 H* Troponin I 1.334 H* Prolactin Cortisol 06/02/18 06/02/18 06/02/18 11:51 13:41 15:58 WBC Potassium Lactic Acid 1.8 Troponin I 1.620 H* Prolactin 12.24 Cortisol 06/03/18 06/03/18 06/03/18 03:15 03:15 03:15 WBC 16.5 H Potassium Lactic Acid Troponin I 1.751 H* Prolactin Cortisol 14.20 EKG Reviewed by me: Yes (Tele - SR) Phys Exam - Physical Examination Constitutional: NAD HEENT: PERRLA, sclera anicteric, oral pharynx no lesions Neck: no nodes, no JVD, supple, full ROM Respiratory: no wheezing, no rales, no rhonchi, clear to auscultation bilateral S1, S2 Cardiovascular: RRR, no rub, gallop Gastrointestinal: soft, non-tender, no distention, positive bowel sounds Musculoskeletal: no edema, pulses present Neurological: normal sensation, moves all 4 limbs Psychiatric: normal affect, A&O x 3 Skin: no rash, normal turgor, cap refill <2 seconds Dx/Plan (1) Septic shock due to Escherichia coli Code(s): A41.51 - SEPSIS DUE TO ESCHERICHIA COLI [E. COLI]; R65.21 - SEVERE SEPSIS WITH SEPTIC SHOCK Status: Acute Comment: Improving, Cefepime d/c'd, Levaquin 750mg po daily (2) E. coli UTI Code(s): N39.0 - URINARY TRACT INFECTION, SITE NOT SPECIFIED; B96.20 - UNSP ESCHERICHIA COLI THE CAUSE OF DISEASES CLASSD ELSWHR Status: Acute Comment: Likely due to recent catheter insertions and retention likely iatrogenic, continue Levaquin, Mosher for bladder decompression, Flomax daily (3) Acute metabolic encephalopathy Code(s): G93.41 - METABOLIC ENCEPHALOPATHY Status: Acute Comment: Improved with tx for sepsis (4) Elevated troponin I level Code(s): R74.8 - ABNORMAL LEVELS OF OTHER SERUM ENZYMES Status: Acute Comment: Likely due to demand ischemia in context of sepsis (5) Hypokalemia Code(s): E87.6 - HYPOKALEMIA Status: Acute Comment: KCL supplementation, repeat K+ level in am (6) Aortic stenosis, 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
[2018-06-05] MEDS: Acetaminophen 500 MG TAB PO PRN (16:50)
[2018-06-05] MEDS: Latanoprost 0.005% Ophth Soln 2.5 ml Bottle EA EYE SCH (22:19)
[2018-06-05] MEDS ORDERED: Lorazepam 1 MG TAB PO SCH (23:15)
[2018-06-05] MEDS ORDERED: Loratadine 10 MG TAB PO SCH (23:15)
[2018-06-06] MEDS: Acetaminophen 500 MG TAB PO PRN ×2 (04:48→16:43)
[2018-06-06 05:39] LABS: Anion Gap 11 mmol/L (10-20); BUN (Urea Nitrogen) 7 mg/dL (8.4-25.7); Calc. Creatinine Clearance 95 mL/min (70-130); Calcium 9.1 mg/dL (7.8-10.44); Carbon Dioxide 25 mmol/L (23-31); Chloride 102 mmol/L (98-107); Estimated GFR-MDRD Greater than 90; Glucose 105 mg/dL (83-110); Potassium 3.6 mmol/L (3.5-5.1); Sodium 134 mmol/L (136-145)
[2018-06-06] MEDS: Aspirin 81 mg Enteric Coated Tablet PO SCH (08:38)
[2018-06-06] MEDS: Potassium Chloride 20 MEQ TAB PO SCH ×2 (08:38→17:52)
[2018-06-06] MEDS: Tamsulosin HCl 0.4 MG CAP PO SCH (08:38)
[2018-06-06] MEDS: Brinzolamide 1% Ophth Soln 10 ml Bottle EA EYE SCH ×3 (08:38→20:42)
--- NOTE | 2018-06-06 08:49 | PDOC.PN ---
- Subjective Encounter Start Date: 06/06/18 Encounter Start Time: 08:45 Subjective: f/u for sepsis from UTI e.coli on current Levaquin. Feels weak but overall -: improved. - Objective Resuscitation Status: Resuscitation Status FULL:Full Resuscitation MAR Reviewed: Yes Vital Signs & Weight: Vital Signs (12 hours) Temp Pulse Resp BP Pulse Ox 06/06/18 07:00 80 20 138/77 95 06/06/18 04:02 97.8 F 77 19 138/74 93 L 06/05/18 23:44 97 F L 69 19 130/68 93 L Weight Weight 181 lb 8 oz Most Recent Monitor Data Heart Rate from ECG 65 NIBP 140/65 NIBP BP-Mean 90 Respiration from ECG 20 SpO2 97 I&O: 06/05/18 06/06/18 06/07/18 06:59 06:59 06:59 Intake Total 1863 1872 Output Total 4904 6569 [facility] -[id number] -1759 Result Diagrams: 06/05/18 03:14 06/06/18 04:37 Additional Labs: Microbiology 06/02/18 08:34 Urine mosher catheter Urine Culture - Preliminary Presumptive Escherichia coli 06/02/18 07:44 Venous blood - Right Hand Blood Culture - Preliminary Escherichia coli 06/02/18 07:44 Venous blood - Left Hand Blood Culture - Preliminary Presumptive Escherichia coli Laboratory Tests 06/02/18 06/02/18 06/02/18 07:44 07:44 07:44 WBC 10.2 Sodium Potassium 3.3 L Lactic Acid Troponin I 0.531 H* Prolactin Cortisol 06/02/18 06/02/18 06/02/18 07:44 11:06 11:51 WBC Sodium Potassium Lactic Acid 3.5 H 4.6 H* Troponin I 1.334 H* Prolactin Cortisol 06/02/18 06/02/18 06/02/18 11:51 13:41 15:58 WBC Sodium Potassium Lactic Acid 1.8 Troponin I 1.620 H* Prolactin 12.24 Cortisol 06/03/18 06/03/18 06/03/18 03:15 03:15 03:15 WBC 16.5 H Sodium Potassium Lactic Acid Troponin I 1.751 H* Prolactin Cortisol 14.20 06/05/18 03:14 WBC Sodium 133 L Potassium 3.4 L Lactic Acid Troponin I Prolactin Cortisol EKG Reviewed by me: Yes (Tele - SR) Phys Exam - Physical Examination Constitutional: NAD HEENT: PERRLA, sclera anicteric, oral pharynx no lesions Neck: no nodes, no JVD, supple, full ROM Respiratory: no wheezing, no rales, no rhonchi, clear to auscultation bilateral S1, S2 Cardiovascular: RRR, no significant murmur, no rub, gallop Gastrointestinal: soft, non-tender, no distention, positive bowel sounds Musculoskeletal: no edema, pulses present Neurological: normal sensation, moves all 4 limbs Psychiatric: A&O x 3 Skin: normal turgor, cap refill <2 seconds Deviation from normal: Mosher with clear urine Dx/Plan (1) Septic shock due to Escherichia coli Code(s): A41.51 - SEPSIS DUE TO ESCHERICHIA COLI [E. COLI]; R65.21 - SEVERE SEPSIS WITH SEPTIC SHOCK Status: Acute Comment: Improving, Cefepime d/c'd, Levaquin 750mg po daily (2) E. coli UTI Code(s): N39.0 - URINARY TRACT INFECTION, SITE NOT SPECIFIED; B96.20 - UNSP ESCHERICHIA COLI THE CAUSE OF DISEASES CLASSD ELSWHR Status: Acute Comment: Likely due to recent catheter insertions and retention likely iatrogenic, continue Levaquin, Mosher for bladder decompression, Flomax daily (3) Acute metabolic encephalopathy Code(s): G93.41 - METABOLIC ENCEPHALOPATHY Status: Acute Comment: Improved with tx for sepsis (4) Elevated troponin I level Code(s): R74.8 - ABNORMAL LEVELS OF OTHER SERUM ENZYMES Status: Acute Comment: Likely due to demand ischemia in context of sepsis (5) Hypokalemia Code(s): E87.6 - HYPOKALEMIA Status: Acute Comment: KCL supplementation, repeat K+ level in am (6) Aortic stenosis, 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
[2018-06-06] MEDS: Timolol 0.5% Ophth Soln 5 ml Bottle EA EYE SCH (09:11)
[2018-06-06] MEDS: Calcium Carbonate 500 MG ChewTAB PO PRN (17:52)
--- NOTE | 2018-06-06 19:06 | PRG ---
DATE OF SERVICE: 06/06/2018 SERVICE: Pulmonary Medicine. INTERVAL HISTORY: The patient is doing fine from a respiratory standpoint. He is breathing comforta vipul. He continues to have ongoing right leg discomfort. This is chronic for him. Otherwise, there has been no interval change to his condition. He is breathing comfortably. He denies having chest p ain or cough. PHYSICAL EXAMINATION: VITAL SIGNS: Afebrile, pulse 86, blood pressure 102/56, respirations 20, saturation 95% on room air. GENERAL: The patient is awake, alert, no apparent distress. LUNGS: Decent air entry. No prolonged expiratory phase, wheezing, rhonchi or crackles are appreciat ed. HEART: Normal rate, regular. ABDOMEN: Soft, nontender, nondistended. Bowel sounds are positive. MUSCULOSKELETAL: No cyanosis or clubbing. There is no pitting in the bilateral lower extremities. NEUROLOGIC: Grossly nonfocal. LABORATORY DATA: WBC 8.0, hemoglobin 11.2, platelets 132,000. Neutrophil count is 76% on top of 9% bands. Basic metabolic profile is essentially unremarkable. Creatinine 0.68, magnesium 2.0. E. col i is growing in the urine, and blood cultures in 2 out of 2. ASSESSMENT: 1. Severe sepsis, resolved. 2. Urinary tract infection secondary to Escherichia coli with urinary retention. 3. Bacteremia secondary to Escherichia coli. 4. Non-ST elevation myocardial infarction. DISCUSSION AND PLAN: We will continue supportive care including antibiotics. From a purely respirat ory perspective, the patient is stable for transition out of the hospital provided that we have an ap propriate course of antibiotic. I will replace the potassium once again. Dr. Cárdenas will resume care in the morning.
[2018-06-06] MEDS: Latanoprost 0.005% Ophth Soln 2.5 ml Bottle EA EYE SCH (20:44)
[2018-06-06] MEDS: Lorazepam 1 MG TAB PO PRN (21:59)
[2018-06-06] MEDS: Loratadine 10 MG TAB PO PRN (21:59)
[2018-06-07] MEDS: Acetaminophen 500 MG TAB PO PRN ×4 (03:43→21:47)
[2018-06-07] MEDS: Calcium Carbonate 500 MG ChewTAB PO PRN (06:48)
[2018-06-07] MEDS: Aspirin 81 mg Enteric Coated Tablet PO SCH (09:23)
[2018-06-07] MEDS: Brinzolamide 1% Ophth Soln 10 ml Bottle EA EYE SCH ×3 (09:23→21:40)
[2018-06-07] MEDS: Potassium Chloride 20 MEQ TAB PO SCH ×2 (09:23→16:21)
[2018-06-07] MEDS: Timolol 0.5% Ophth Soln 5 ml Bottle EA EYE SCH (09:23)
[2018-06-07] MEDS: Tamsulosin HCl 0.4 MG CAP PO SCH (09:23)
--- NOTE | 2018-06-07 14:39 | PRG ---
DATE OF SERVICE: 06/07/2018 SUBJECTIVE: Sandeep Mata has no complaints. He is undergoing a spontaneous voiding trial. I have asked the nurse to scan his bladder after his last void, which is about 15 minutes ago. He is in no respiratory distress. I suspect his respiratory distress on admission was all related to his acid base disorder that was associated with his clinical sepsis. He remains stable and we will follo w from a distance.
--- NOTE | 2018-06-07 15:06 | PDOC.PN ---
- Subjective Encounter Start Date: 06/07/18 Encounter Start Time: 15:00 Subjective: f/u for sepsis, UTI with E. coli on current Levaquin. Feels well. Mosher -: d/c'd with voiding trials in progress. Bladder scan with PVR 100ml. - Objective Resuscitation Status: Resuscitation Status FULL:Full Resuscitation MAR Reviewed: Yes Vital Signs & Weight: Vital Signs (12 hours) Temp Pulse Pulse Pulse Resp BP BP 06/07/18 11:58 97.8 F 81 16 06/07/18 09:50 91 90 114/64 101/58 L 06/07/18 08:00 06/07/18 07:54 97.7 F 85 16 06/07/18 04:00 98.1 F 82 20 BP Pulse Ox 06/07/18 11:58 117/66 95 06/07/18 09:50 06/07/18 08:00 97 06/07/18 07:54 110/70 97 06/07/18 04:00 128/72 95 Weight Admit Weight 190 lb Weight 181 lb 10.574 oz Most Recent Monitor Data Heart Rate from ECG 65 NIBP 140/65 NIBP BP-Mean 90 Respiration from ECG 20 SpO2 97 I&O: 06/06/18 06/07/18 06/08/18 06:59 06:59 06:59 Intake Total 1872 950 Output Total 6575 8123 600 Balance -4678 -1750 -600 Result Diagrams: 06/05/18 03:14 06/06/18 04:37 Additional Labs: Microbiology 06/02/18 08:34 Urine mosher catheter Urine Culture - Preliminary Presumptive Escherichia coli 06/02/18 07:44 Venous blood - Right Hand Blood Culture - Preliminary Escherichia coli 06/02/18 07:44 Venous blood - Left Hand Blood Culture - Preliminary Presumptive Escherichia coli Laboratory Tests 06/02/18 06/02/18 06/02/18 07:44 07:44 07:44 WBC 10.2 Sodium Potassium 3.3 L Lactic Acid Troponin I 0.531 H* Prolactin Cortisol 06/02/18 06/02/18 06/02/18 07:44 11:06 11:51 WBC Sodium Potassium Lactic Acid 3.5 H 4.6 H* Troponin I 1.334 H* Prolactin Cortisol 06/02/18 06/02/18 06/02/18 11:51 13:41 15:58 WBC Sodium Potassium Lactic Acid 1.8 Troponin I 1.620 H* Prolactin 12.24 Cortisol 06/03/18 06/03/18 06/03/18 03:15 03:15 03:15 WBC 16.5 H Sodium Potassium Lactic Acid Troponin I 1.751 H* Prolactin Cortisol 14.20 06/05/18 03:14 WBC Sodium 133 L Potassium 3.4 L Lactic Acid Troponin I Prolactin Cortisol EKG Reviewed by me: Yes (Tele - SR) Phys Exam - Physical Examination Constitutional: NAD HEENT: PERRLA, sclera anicteric, oral pharynx no lesions Neck: no nodes, no JVD, supple, full ROM Respiratory: no wheezing, no rales, no rhonchi, clear to auscultation bilateral S1, S2 Cardiovascular: RRR, no significant murmur, no rub, gallop Gastrointestinal: soft, non-tender, no distention, positive bowel sounds Musculoskeletal: no edema, pulses present Neurological: normal sensation, moves all 4 limbs Psychiatric: normal affect, A&O x 3 Skin: normal turgor, cap refill <2 seconds Dx/Plan (1) Septic shock due to Escherichia coli Code(s): A41.51 - SEPSIS DUE TO ESCHERICHIA COLI [E. COLI]; R65.21 - SEVERE SEPSIS WITH SEPTIC SHOCK Status: Acute Comment: Resolved, Cefepime d/c'd, Levaquin 750mg po daily (2) E. coli UTI Code(s): N39.0 - URINARY TRACT INFECTION, SITE NOT SPECIFIED; B96.20 - UNSP ESCHERICHIA COLI THE CAUSE OF DISEASES CLASSD ELSWHR Status: Acute Comment: Likely due to recent catheter insertions and retention likely iatrogenic, continue Levaquin, Mosher d/c'd today with spontaneous voiding trials , PVR monitoring (3) Acute metabolic encephalopathy Code(s): G93.41 - METABOLIC ENCEPHALOPATHY Status: Acute Comment: Improved with tx for sepsis (4) Elevated troponin I level Code(s): R74.8 - ABNORMAL LEVELS OF OTHER SERUM ENZYMES Status: Acute Comment: Likely due to demand ischemia in context of sepsis (5) Hypokalemia Code(s): E87.6 - HYPOKALEMIA Status: Acute Comment: KCL supplementation, repeat K+ level in am (6) Aortic stenosis, 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
[2018-06-07] MEDS ORDERED: Calcium Carbonate 500 MG ChewTAB PO PRN (15:08)
[2018-06-07] MEDS ORDERED: Bisacodyl 5 MG TAB PO PRN (15:08)
[2018-06-07] MEDS ORDERED: Baclofen 10 MG TAB PO PRN (15:08)
[2018-06-07] MEDS: Mometasone Furoate 120 PUFF 220 MCG INH SCH (19:46)
[2018-06-07] MEDS ORDERED: Ramelteon [Rozerem] 8 MG PO SCH (21:00)
[2018-06-07] MEDS: Latanoprost 0.005% Ophth Soln 2.5 ml Bottle EA EYE SCH (21:40)
[2018-06-07] MEDS: Lorazepam 1 MG TAB PO PRN (21:47)
[2018-06-07] MEDS: Loratadine 10 MG TAB PO PRN (21:47)
[2018-06-08] MEDS: Acetaminophen 500 MG TAB PO PRN ×3 (02:46→23:00)
[2018-06-08 06:09] LABS: Anion Gap 10 mmol/L (10-20); BUN (Urea Nitrogen) 13 mg/dL (8.4-25.7); Calc. Creatinine Clearance 96 mL/min (70-130); Calcium 9.2 mg/dL (7.8-10.44); Carbon Dioxide 23 mmol/L (23-31); Chloride 99 mmol/L (98-107); Estimated GFR-MDRD Greater than 90; Glucose 103 mg/dL (83-110); Sodium 128 mmol/L (136-145)
[2018-06-08] MEDS: Tamsulosin HCl 0.4 MG CAP PO SCH (09:42)
[2018-06-08] MEDS: Brinzolamide 1% Ophth Soln 10 ml Bottle EA EYE SCH ×3 (09:42→21:11)
[2018-06-08] MEDS: Aspirin 81 mg Enteric Coated Tablet PO SCH (09:42)
[2018-06-08] MEDS: Potassium Chloride 20 MEQ TAB PO SCH ×2 (09:42→16:25)
[2018-06-08] MEDS: Timolol 0.5% Ophth Soln 5 ml Bottle EA EYE SCH (09:44)
--- NOTE | 2018-06-08 16:05 | PDOC.PN ---
- Subjective Encounter Start Date: 06/08/18 Encounter Start Time: 10:15 Doing ok. Ready to go back to rehab, but concerned that this could happen again. Voiding well without the Viera, but has some frequent urinary urge. - Objective Resuscitation Status: Resuscitation Status FULL:Full Resuscitation Vital Signs & Weight: Vital Signs (12 hours) Temp Pulse Pulse Pulse Resp BP BP 06/08/18 15:48 97.6 F 80 18 06/08/18 14:05 85 81 118/66 116/67 06/08/18 12:00 96.8 F L 81 20 06/08/18 08:00 96.2 F L 91 20 BP BP BP Pulse Ox Pulse Ox Pulse Ox 06/08/18 15:48 115/66 97 06/08/18 14:05 96 94 L 06/08/18 12:00 97/54 L 96 06/08/18 08:00 116/66 94 L Weight Admit Weight 190 lb Weight 181 lb 7.047 oz Most Recent Monitor Data Heart Rate from ECG 65 NIBP 140/65 NIBP BP-Mean 90 Respiration from ECG 20 SpO2 97 I&O: 06/07/18 06/08/18 06/09/18 06:59 06:59 06:59 Intake Total 950 1600 Output Total 5700 6002 447 Balance -1750 -1025 -447 Result Diagrams: 06/05/18 03:14 06/08/18 05:23 Phys Exam - Physical Examination Constitutional: NAD Uncomfortable with positioning. Respiratory: no wheezing, no rales, no rhonchi, clear to auscultation bilateral Cardiovascular: RRR, no significant murmur Gastrointestinal: soft, non-tender, no distention Psychiatric: normal affect, A&O x 3 Dx/Plan (1) E. coli UTI Code(s): N39.0 - URINARY TRACT INFECTION, SITE NOT SPECIFIED; B96.20 - UNSP ESCHERICHIA COLI THE CAUSE OF DISEASES CLASSD ELSWHR Status: Acute Comment: Likely due to recent catheter insertions and retention likely iatrogenic, continue Levaquin, Viera d/c'd today with spontaneous voiding trials , PVR monitoring (2) Septic shock due to Escherichia coli Code(s): A41.51 - SEPSIS DUE TO ESCHERICHIA COLI [E. 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 Recheck in am. - Plan * Continue po Levaquin. * Back to rehab when bed available. * Recheck sodium in am.
[2018-06-08] MEDS: Acetaminophen 325 MG TAB PO PRN (16:24)
[2018-06-08] MEDS: Calcium Carbonate 500 MG ChewTAB PO PRN (16:26)
[2018-06-08] MEDS: Mometasone Furoate 120 PUFF 220 MCG INH SCH (18:41)
[2018-06-08] MEDS: Lorazepam 1 MG TAB PO PRN (21:09)
[2018-06-08] MEDS: Loratadine 10 MG TAB PO PRN (21:11)
[2018-06-08] MEDS: Latanoprost 0.005% Ophth Soln 2.5 ml Bottle EA EYE SCH (21:12)
[2018-06-09 06:19] LABS: Anion Gap 11 mmol/L (10-20); Calc. Creatinine Clearance 77 mL/min (70-130); Calcium 9.5 mg/dL (7.8-10.44); Carbon Dioxide 23 mmol/L (23-31); Chloride 98 mmol/L (98-107); Estimated GFR-MDRD Greater than 90; Glucose 100 mg/dL (83-110); Potassium 4.1 mmol/L (3.5-5.1); Sodium 128 mmol/L (136-145)
[2018-06-09 06:20] LABS: BUN (Urea Nitrogen) 16 mg/dL (8.4-25.7)
[2018-06-09 06:29] LABS: Band 9 % (5-11); Eosinophils 4 % (0-10); Hemoglobin 13.5 g/dL (14.0-18.0); Lymphocytes 15 % (21-51); MDiff Complete? YES; Mean Platelet Volume 6.6 fL (7.4-10.4); Metamyelocyte 3 % (0-0); Monocytes 13 % (0-10); Myelocyte 4 % (0-0); Neutrophil 50 % (42-75); Platelet Count 309 thou/uL (130-400); RBC Distribution Width 12.7 % (11.5-14.5); Reactive Lymphocytes 2 % (0-10); Red Blood Cell (RBC) Count 4.35 mill/uL (4.70-6.10); White Blood Cell (WBC) Count 11.9 thou/uL (4.8-10.8)
--- NOTE | 2018-06-09 10:04 | PDOC.PN ---
- Subjective Encounter Start Date: 06/09/18 Encounter Start Time: 10:02 Says he feels marginal. Thinks he may just be "suggestible" and started feeling borderline dizzy when he was told his SBP was low. Having some spasms. Pain meds are working for him adequately. - Objective Resuscitation Status: Resuscitation Status FULL:Full Resuscitation MAR Reviewed: Yes Vital Signs & Weight: Vital Signs (12 hours) Temp Pulse Resp BP BP Pulse Ox 06/09/18 08:00 98.2 F 97 16 78/49 L 96 06/09/18 05:30 113/65 06/09/18 04:00 98.2 F 87 20 99/57 L 93 L 06/08/18 23:01 82 18 122/62 Weight Admit Weight 190 lb Weight 176 lb 5.917 oz Most Recent Monitor Data Heart Rate from ECG 65 NIBP 140/65 NIBP BP-Mean 90 Respiration from ECG 20 SpO2 97 I&O: 06/08/18 06/09/18 06/10/18 06:59 06:59 06:59 Intake Total 1600 250 Output Total 2625 1127 Balance -1025 -877 Result Diagrams: 06/09/18 05:16 06/09/18 05:16 Phys Exam - Physical Examination Constitutional: NAD Occ. grimace with spasms. Respiratory: no wheezing, no rales, no rhonchi, clear to auscultation bilateral Cardiovascular: RRR, no significant murmur Gastrointestinal: soft, non-tender, no distention Musculoskeletal: no edema Psychiatric: normal affect, A&O x 3 Skin: normal turgor Dx/Plan (1) E. coli UTI Code(s): N39.0 - URINARY TRACT INFECTION, SITE NOT SPECIFIED; B96.20 - UNSP ESCHERICHIA COLI THE CAUSE OF DISEASES CLASSD ELSWHR Status: Acute Comment: Likely due to recent catheter insertions and retention likely iatrogenic, continue Levaquin, Viera d/c'd today with spontaneous voiding trials , PVR monitoring (2) Septic shock due to Escherichia coli Code(s): A41.51 - SEPSIS DUE TO ESCHERICHIA COLI [E. 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 Checking Cortisol. (6) Hypotension Status: Acute Comment: Fluid bolus, repeat cultures, UA, CXR. WBC up today too. (7) Acute metabolic encephalopathy Code(s): G93.41 - METABOLIC ENCEPHALOPATHY Status: Acute Comment: Improved with tx for sepsis (8) Elevated troponin I level Code(s): R74.8 - ABNORMAL LEVELS OF OTHER SERUM ENZYMES Status: Acute Comment: Likely due to demand ischemia in context of sepsis (9) Aortic stenosis, severe Code(s): I35.0 - NONRHEUMATIC AORTIC (VALVE) STENOSIS Status: Chronic Comment: Chronic, supportive mgmt. Careful fluid and BP management. - Plan * Mild hypotension, leukocytosis today. UA, Blood Cx, CXR, Cortisol level. * Continue PO Levaquin for now. * Hold on Transfer to rehab.
[2018-06-09] MEDS: Brinzolamide 1% Ophth Soln 10 ml Bottle EA EYE SCH ×3 (10:06→20:13)
[2018-06-09] MEDS: Aspirin 81 mg Enteric Coated Tablet PO SCH (10:06)
[2018-06-09] MEDS: Potassium Chloride 20 MEQ TAB PO SCH ×2 (10:06→17:10)
[2018-06-09] MEDS: Timolol 0.5% Ophth Soln 5 ml Bottle EA EYE SCH (10:07)
[2018-06-09] MEDS: Acetaminophen 325 MG TAB PO PRN ×2 (10:07→20:12)
[2018-06-09] MEDS: Tamsulosin HCl 0.4 MG CAP PO SCH (10:07)
[2018-06-09] MEDS ORDERED: Sodium Chloride 0.9% 500 ML IVPB SCH (11:00)
[2018-06-09 11:53] LABS: Bilirubin Negative (Negative); Blood, Urine Negative (Negative); Clarity CLEAR (Clear); Glucose, Urine (Dipstick) Negative (Negative); Leukocyte Negative (Negative); Nitrite Negative (Negative); Protein, Urine (Dipstick) Negative (Neg-Trace); Specific Gravity, Urine 1.016 (1.002-1.036); Urobilinogen 0.2 mg/dL (0.2-1.0)
[2018-06-09 11:56] LABS: Bacteria/HPF None Seen HPF (None Seen); Hyaline Casts/LPF 0-3 HYALINE CAST LPF (0-3 Hyaline); Pathc Cast-AUWi Flag 0.43 (0-2.49); RBC/HPF 0-3 HPF (0-3); Squamous Epithelial 0-3 HPF (0-3); WBC/HPF 0-3 HPF (0-3)
--- NOTE | 2018-06-09 12:47 | RAD ---
PORTABLE UPRIGHT FRONTAL CHEST RADIOGRAPH: Date: 06-09-18 Comparison: 06-03-18 History: Leukocytosis. FINDINGS: Heart and mediastinal contours appear stable. There is increased linear interstitial density and pulm onary hyperinflation suggesting underlying emphysematous change/COPD in the proper clinical setting. There is no pneumothorax, pleural fluid, lobar consolidation or alveolar edema. IMPRESSION: No focal consolidation or alveolar edema. POS: [facility]
[2018-06-09] MEDS: Acetaminophen 500 MG TAB PO PRN (17:11)
[2018-06-09] MEDS: Hydrocortisone 10 mg Tablet PO SCH ×2 (17:11→20:13)
[2018-06-09] MEDS: Mometasone Furoate 120 PUFF 220 MCG INH SCH (18:59)
[2018-06-09] MEDS: Lorazepam 1 MG TAB PO PRN (20:12)
[2018-06-09] MEDS: Latanoprost 0.005% Ophth Soln 2.5 ml Bottle EA EYE SCH (20:14)
[2018-06-09] MEDS: Loratadine 10 MG TAB PO PRN (20:16)
[2018-06-10] MEDS: Acetaminophen 500 MG TAB PO PRN ×2 (03:26→09:19)
[2018-06-10 05:22] LABS: Anion Gap 9 mmol/L (10-20); BUN (Urea Nitrogen) 17 mg/dL (8.4-25.7); Calc. Creatinine Clearance 82 mL/min (70-130); Calcium 9.4 mg/dL (7.8-10.44); Carbon Dioxide 27 mmol/L (23-31); Chloride 99 mmol/L (98-107); Estimated GFR-MDRD Greater than 90; Glucose 114 mg/dL (83-110); Potassium 4.2 mmol/L (3.5-5.1); Sodium 131 mmol/L (136-145)
[2018-06-10 05:31] LABS: Hemoglobin 13.2 g/dL (14.0-18.0); Hypochromia SLIGHT = 6-15 cells (100X) (0-5/hpf); Lymphocytes 34 % (21-51); MDiff Complete? YES; Mean Corpuscular HGB CONC 33.8 g/dL (32.0-36.0); Mean Corpuscular Hemoglobin 31.5 pg (27.0-31.0); Mean Corpuscular Volume 93.2 fL (78.0-98.0); Mean Platelet Volume 6.1 fL (7.4-10.4); Monocytes 6 % (0-10); Neutrophil 60 % (42-75); PLT Morphology Comment Appears Adequate; Platelet Count 332 thou/uL (130-400); RBC Distribution Width 12.6 % (11.5-14.5); Red Blood Cell (RBC) Count 4.18 mill/uL (4.70-6.10); White Blood Cell (WBC) Count 12.8 thou/uL (4.8-10.8)
[2018-06-10] MEDS ORDERED: Sodium Chloride 0.9% 10 ML ONE (08:05)
[2018-06-10] MEDS: Hydrocortisone 10 mg Tablet PO SCH ×4 (09:02→21:32)
[2018-06-10] MEDS: Tamsulosin HCl 0.4 MG CAP PO SCH (09:03)
[2018-06-10] MEDS: Aspirin 81 mg Enteric Coated Tablet PO SCH (09:03)
[2018-06-10] MEDS: Timolol 0.5% Ophth Soln 5 ml Bottle EA EYE SCH (09:03)
[2018-06-10] MEDS: Brinzolamide 1% Ophth Soln 10 ml Bottle EA EYE SCH ×3 (09:04→21:20)
[2018-06-10] MEDS: Potassium Chloride 20 MEQ TAB PO SCH ×2 (09:09→16:53)
[2018-06-10 13:23] VITALS: BMI 25.0
[2018-06-10] MEDS: Acetaminophen 325 MG TAB PO PRN ×2 (16:41→23:40)
[2018-06-10] MEDS: Mometasone Furoate 120 PUFF 220 MCG INH SCH (19:19)
[2018-06-10] MEDS ORDERED: Ketorolac Tromethamine 30 MG/ML VIAL IVP PRN (20:59)
[2018-06-10] MEDS: Lorazepam 1 MG TAB PO PRN (21:19)
[2018-06-10] MEDS: Latanoprost 0.005% Ophth Soln 2.5 ml Bottle EA EYE SCH (21:20)
[2018-06-10] MEDS: Loratadine 10 MG TAB PO PRN (21:32)
[2018-06-11] MEDS: Acetaminophen 500 MG TAB PO PRN ×2 (05:28→21:40)
[2018-06-11 06:33] LABS: Anion Gap 11 mmol/L (10-20); BUN (Urea Nitrogen) 15 mg/dL (8.4-25.7); Calc. Creatinine Clearance 86 mL/min (70-130); Calcium 8.9 mg/dL (7.8-10.44); Carbon Dioxide 23 mmol/L (23-31); Chloride 100 mmol/L (98-107); Estimated GFR-MDRD Greater than 90; Glucose 94 mg/dL (83-110); Potassium 3.8 mmol/L (3.5-5.1); Sodium 130 mmol/L (136-145)
[2018-06-11 06:35] LABS: Band 2 % (5-11); Hemoglobin 12.7 g/dL (14.0-18.0); Lymphocytes 26 % (21-51); MDiff Complete? YES; Mean Corpuscular HGB CONC 33.9 g/dL (32.0-36.0); Mean Corpuscular Hemoglobin 31.8 pg (27.0-31.0); Mean Corpuscular Volume 93.6 fL (78.0-98.0); Mean Platelet Volume 5.7 fL (7.4-10.4); Metamyelocyte 3 % (0-0); Monocytes 9 % (0-10); Myelocyte 1 % (0-0); Neutrophil 59 % (42-75); PLT Morphology Comment Appears Adequate; Platelet Count 344 thou/uL (130-400); RBC Distribution Width 12.7 % (11.5-14.5); Red Blood Cell (RBC) Count 3.98 mill/uL (4.70-6.10); White Blood Cell (WBC) Count 14.6 thou/uL (4.8-10.8)
[2018-06-11] MEDS ORDERED: Sodium Chloride 0.9% 10 ML ONE ×2 (07:31→07:32)
--- NOTE | 2018-06-11 08:30 | PDOC.PN ---
- Subjective Encounter Start Date: 06/10/18 Encounter Start Time: 10:30 Feels ok. No specific complaints. Still feels a little weak. BP was a little low again this morning. - Objective Resuscitation Status: Resuscitation Status FULL:Full Resuscitation Vital Signs & Weight: Vital Signs (12 hours) Temp Pulse Resp BP BP Pulse Ox 06/11/18 07:45 97.4 F L 81 18 98/60 96 06/11/18 03:40 97.7 F 75 13 121/63 95 Weight Admit Weight 190 lb Weight 175 lb 4.8 oz Most Recent Monitor Data Heart Rate from ECG 65 NIBP 140/65 NIBP BP-Mean 90 Respiration from ECG 20 SpO2 97 I&O: 06/10/18 06/11/18 06/12/18 06:59 06:59 06:59 Intake Total 1270 780 Output Total 1400 1625 Balance -130 -845 Result Diagrams: 06/11/18 06:01 06/11/18 06:01 Phys Exam - Physical Examination Constitutional: NAD Posterior c-spine incision looks good. No erythema or TTP. Respiratory: no wheezing, no rales, no rhonchi, clear to auscultation bilateral Cardiovascular: RRR, no significant murmur Gastrointestinal: soft, non-tender, no distention Musculoskeletal: no edema Neurological: non-focal Psychiatric: normal affect Skin: no rash, normal turgor Dx/Plan (1) E. coli UTI Code(s): N39.0 - URINARY TRACT INFECTION, SITE NOT SPECIFIED; B96.20 - UNSP ESCHERICHIA COLI THE CAUSE OF DISEASES CLASSD ELSWHR Status: Acute Comment: Likely due to recent catheter insertions and retention likely iatrogenic, continue Levaquin, Viera d/c'd today with spontaneous voiding trials , PVR monitoring (2) Septic shock due to Escherichia coli Code(s): A41.51 - SEPSIS DUE TO ESCHERICHIA COLI [E. COLI]; R65.21 - SEVERE SEPSIS WITH SEPTIC SHOCK Status: Resolved Comment: Resolved, Cefepime d/c'd , Levaquin 750mg po daily (3) Physical deconditioning Code(s): R53.81 - OTHER MALAISE Status: Chronic Comment: PT for mobilization , Rehab options. Would like to return him to the [facility], but investigating the leukocytosis. 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 Started hydrocortisone. (6) Hypotension Status: Acute Comment: On hydrocortisone. Holding the tamsulosin and the diltiazem. Only episodic and mild. (7) Acute metabolic encephalopathy Code(s): G93.41 - METABOLIC ENCEPHALOPATHY Status: Resolved Comment: Improved with tx for sepsis (8) Elevated troponin I level Code(s): R74.8 - ABNORMAL LEVELS OF OTHER SERUM ENZYMES Status: Acute Comment: Likely due to demand ischemia in context of sepsis (9) Aortic stenosis, severe Code(s): I35.0 - NONRHEUMATIC AORTIC (VALVE) STENOSIS Status: Chronic Comment: Chronic, supportive mgmt. Careful fluid and BP management. (10) Leukocytosis Code(s): D72.829 - ELEVATED WHITE BLOOD CELL COUNT, UNSPECIFIED Status: Acute Comment: Worsening daily. No fever and no overt signs or symptoms of infection. Negative CXR, UA and blood cultures. Give blood cultures one more day and recheck in am. - Plan * above.
[2018-06-11] MEDS: Brinzolamide 1% Ophth Soln 10 ml Bottle EA EYE SCH ×3 (09:19→20:46)
[2018-06-11] MEDS: Hydrocortisone 10 mg Tablet PO SCH ×4 (09:20→20:55)
[2018-06-11] MEDS: Potassium Chloride 20 MEQ TAB PO SCH ×2 (09:21→17:46)
[2018-06-11] MEDS: Aspirin 81 mg Enteric Coated Tablet PO SCH (09:21)
[2018-06-11] MEDS: Timolol 0.5% Ophth Soln 5 ml Bottle EA EYE SCH (09:22)
[2018-06-11] MEDS: Saccharomyces boulardii 250 MG CAP PO SCH (09:28)
--- NOTE | 2018-06-11 10:41 | PDOC.PN ---
- Subjective Encounter Start Date: 06/11/18 Encounter Start Time: 10:39 Feeling well. Ambulating well with PT. No complaints. - Objective Resuscitation Status: Resuscitation Status FULL:Full Resuscitation Vital Signs & Weight: Vital Signs (12 hours) Temp Pulse Pulse Pulse Pulse Resp BP 06/11/18 09:22 88 118/59 L 06/11/18 08:32 81 85 88 06/11/18 08:00 06/11/18 07:45 97.4 F L 81 18 06/11/18 03:40 97.7 F 75 13 BP BP BP BP BP Pulse Ox Pulse Ox 06/11/18 09:22 06/11/18 08:32 102/58 L 120/64 122/56 L 96 06/11/18 08:00 96 06/11/18 07:45 98/60 96 06/11/18 03:40 121/63 95 Pulse Ox Pulse Ox 06/11/18 09:22 06/11/18 08:32 96 92 L 06/11/18 08:00 06/11/18 07:45 06/11/18 03:40 Weight Admit Weight 190 lb Weight 175 lb 4.8 oz Most Recent Monitor Data Heart Rate from ECG 65 NIBP 140/65 NIBP BP-Mean 90 Respiration from ECG 20 SpO2 97 I&O: 06/10/18 06/11/18 06/12/18 06:59 06:59 06:59 Intake Total 1270 780 Output Total 1400 1625 Balance -130 -845 Result Diagrams: 06/11/18 06:01 06/11/18 06:01 Phys Exam - Physical Examination Constitutional: NAD Looks good in general. Better every day. Neck: no nodes, no JVD, supple Post incision looks good. No TTP or erythema. Respiratory: no wheezing, no rales, no rhonchi, clear to auscultation bilateral Cardiovascular: RRR II/ murmur Gastrointestinal: soft, non-tender, no distention, positive bowel sounds Musculoskeletal: no edema RUE PICC. No erythema or drng. Neurological: non-focal, normal sensation, moves all 4 limbs Lymphatic: no nodes Psychiatric: normal affect, A&O x 3 Skin: no rash, normal turgor Deviation from normal: No lesions. Dx/Plan (1) E. coli UTI Code(s): N39.0 - URINARY TRACT INFECTION, SITE NOT SPECIFIED; B96.20 - UNSP ESCHERICHIA COLI THE CAUSE OF DISEASES CLASSD ELSWHR Status: Acute Comment: Likely due to recent catheter insertions and retention likely iatrogenic, continue Levaquin, Viera d/c'd. Voiding well. (2) Septic shock due to Escherichia coli Code(s): A41.51 - SEPSIS DUE TO ESCHERICHIA COLI [E. COLI]; R65.21 - SEVERE SEPSIS WITH SEPTIC SHOCK Status: Resolved Comment: Resolved, Cefepime d/c'd , Levaquin 750mg po daily (3) Physical deconditioning Code(s): R53.81 - OTHER MALAISE Status: Chronic Comment: PT for mobilization , Rehab options. Would like to return him to the [facility], but investigating the leukocytosis. 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 Wound looks good. (5) Hyponatremia Code(s): E87.1 - HYPO-OSMOLALITY AND HYPONATREMIA Status: Acute Comment: Stable today. Started hydrocortisone. Chronically mildly low. (6) Hypotension Status: Acute Comment: On hydrocortisone. Holding the tamsulosin and the diltiazem. Only episodic and mild. (7) Acute metabolic encephalopathy Code(s): G93.41 - METABOLIC ENCEPHALOPATHY Status: Resolved Comment: Improved with tx for sepsis (8) Elevated troponin I level Code(s): R74.8 - ABNORMAL LEVELS OF OTHER SERUM ENZYMES Status: Acute Comment: Likely due to demand ischemia in context of sepsis (9) Aortic stenosis, severe Code(s): I35.0 - NONRHEUMATIC AORTIC (VALVE) STENOSIS Status: Chronic Comment: Chronic, supportive mgmt. Careful fluid and BP management. (10) Leukocytosis Code(s): D72.829 - ELEVATED WHITE BLOOD CELL COUNT, UNSPECIFIED Status: Acute Comment: Worsening daily. No fever and no overt signs or symptoms of infection. Negative CXR, UA and blood cultures. Thorough exam with no findings. PICC looks good. Apparently not being used for draws. Will obtain cultures through the PICC and then DC it. Recheck in am. ID opinion. Patient needs to get back to rehab. - Plan * above.
[2018-06-11] MEDS: Calcium Carbonate 500 MG ChewTAB PO PRN (14:34)
[2018-06-11] MEDS: Acetaminophen 325 MG TAB PO PRN (15:26)
--- NOTE | 2018-06-11 17:20 | EKG ---
Test Reason : Blood Pressure : / mmHG Vent. Rate : 100 BPM Atrial Rate : 100 BPM P-R Int : 216 ms QRS Dur : 098 ms QT Int : 362 ms P-R-T Axes : 037 017 086 degrees QTc Int : 466 ms Sinus rhythm with 1st degree A-V block with frequent Premature ventricular complexes ST depression, consider subendocardial injury or digitalis effect Abnormal ECG Confirmed by SATINDER ARANDA, MIGUELANGEL ([id number]), scientific publications editor SANAM LA ([id number]) on 06/11/2018 5:20:25 PM Referred By: Confirmed By:MIGUELANGEL RAJAN MD
[2018-06-11] MEDS: Mometasone Furoate 120 PUFF 220 MCG INH SCH (19:12)
[2018-06-11] MEDS: Latanoprost 0.005% Ophth Soln 2.5 ml Bottle EA EYE SCH (20:46)
[2018-06-11] MEDS: Lorazepam 1 MG TAB PO PRN (20:57)
[2018-06-11] MEDS: Loratadine 10 MG TAB PO PRN (20:57)
--- NOTE | 2018-06-11 23:54 | CON ---
DATE OF CONSULTATION: 06/11/2018 REASON FOR CONSULTATION: Neutrophilia. HISTORY OF PRESENT ILLNESS: This is an 88-year-old who has a history of prior lumbosacral radiculopathy status post laminectomy in December, followed by development of upper extremity symptoms which led to a cervical laminectomy. Subsequently, he developed sepsis syndrome, which was ascribed to a urinary tract infection secondary to a fairly broadly sensitive E. coli. The patient has been twice back and forth to the rehabilitation and back to the hospital because of those procedures and admissions related to above, and he was getting better and being readied for discharge planning when his white cell count started going up and peaked at 14.6 today. We were asked to assess that. The patient himself had an episode of liquid stool right before I arrived in the room and had to be cleaned by the nurse. He is otherwise feeling better. He feels what he describes as upset stomach with distention. He denies headaches. No visual symptoms. No sore throat. No chest pain. No genitourinary symptoms. He did have an episode of urinary retention in the recent past, managed with Flomax. No joint symptoms. 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 PAST SURGICAL HISTORY: Also includes cataract removal. ALLERGIES: IODINE with rash. FAMILY HISTORY: Noncontributory. SOCIAL HISTORY: . Never a smoker. CURRENT MEDICATIONS: Tylenol; Ecotrin; Dulcolax; Tums; Cardizem; Cortef, this was prescribed for low cortisol level drawn during this admission; Toradol; lactulose; Xalatan; he is also on Levaquin; Claritin; Ativan; Zofran; ramelteon ; K-Dur; Florastor. PHYSICAL EXAMINATION: VITAL SIGNS: T-max 98.7, blood pressure 120/56, pulse 88, respirations 18, O2 sat 96%. SKIN: Mild erythema in the perianal area from diarrhea. Peripheral IV access. Does not have a Viera catheter. No lymphadenopathy. HEENT: Ocular movements conjugate. Sclerae white. Oral cavity normal. NECK: Supple. LUNGS: Symmetric clear breath sounds. HEART: S1, S2 regular rate. ABDOMEN: Distended. Bowel sounds are increased. Mild tenderness, which is diffuse. No bladder distention. EXTREMITIES: No joint inflammatory activity. Pulses 1+ in dorsalis pedis. NEUROLOGIC: Nonfocal. He is a little bit sluggish in his replies and has trouble with recollection of events. His did a lot of the history related questions. LABORATORY DATA: White cell count is up to 14.6 with hemoglobin 12.7, MCV 93, platelets 344 with 59% neutrophils, 2% bands, 26% lymphocytes. PH 7.4, pCO2 of 25, pO2 192. Sodium 130, creatinine 0.69. Urinalysis was normal. We have the urine culture and blood cultures from 06/02/2018 and repeat blood culture is negative. The 06/02/2018 samples with E. coli susceptible to quinolones. IMAGING: Reports include a chest x-ray from 06/09/2018, which showed no areas of focal consolidation. ASSESSMENT: 1. Spinal stenosis with lumbar and cervical decompressive surgeries recently. 2. Escherichia coli bacteremia secondary to urinary tract infection associated with urinary retention, which appears to have resolved. 3. Neutrophilia. 4. Presumptive adrenal insufficiency. This is based on low cortisol levels obtained that actually seem to be within normal range at least the ones available here in the record. 5. Abdominal distention, nausea, diarrhea. DISCUSSION: The main concern here is Clostridium difficile colitis in view of the exposures and epidemiological situation. We will submit testing for that. Regarding the other possibilities, there is no evidence of respiratory tract or other intra-abdominal inflammatory process or urinary tract involvement. The surgical sites are all looking very good. I do not think there is any evidence to suggest a surgical site infection. I would consider stopping the corticosteroids since the diagnosis of adrenal insufficiency is questionable. CATHRYND
[2018-06-12 05:18] LABS: Anion Gap 10 mmol/L (10-20); BUN (Urea Nitrogen) 19 mg/dL (8.4-25.7); Calc. Creatinine Clearance 83 mL/min (70-130); Calcium 9.2 mg/dL (7.8-10.44); Carbon Dioxide 26 mmol/L (23-31); Chloride 101 mmol/L (98-107); Estimated GFR-MDRD Greater than 90; Glucose 107 mg/dL (83-110); Potassium 3.8 mmol/L (3.5-5.1); Sodium 133 mmol/L (136-145)
[2018-06-12 06:22] LABS: Band 7 % (5-11); Hemoglobin 12.8 g/dL (14.0-18.0); Lymphocytes 16 % (21-51); MDiff Complete? YES; Mean Corpuscular HGB CONC 33.8 g/dL (32.0-36.0); Mean Corpuscular Hemoglobin 31.3 pg (27.0-31.0); Mean Corpuscular Volume 92.5 fL (78.0-98.0); Mean Platelet Volume 6.1 fL (7.4-10.4); Metamyelocyte 4 % (0-0); Monocytes 8 % (0-10); Myelocyte 1 % (0-0); Neutrophil 59 % (42-75); PLT Morphology Comment Appears Adequate; Platelet Count 360 thou/uL (130-400); RBC Distribution Width 12.6 % (11.5-14.5); RBC Morphology Normal; Reactive Lymphocytes 5 % (0-10); Red Blood Cell (RBC) Count 4.08 mill/uL (4.70-6.10); White Blood Cell (WBC) Count 15.3 thou/uL (4.8-10.8)
[2018-06-12] MEDS: Hydrocortisone 10 mg Tablet PO SCH (09:18)
[2018-06-12] MEDS: Potassium Chloride 20 MEQ TAB PO SCH ×2 (09:22→17:39)
[2018-06-12] MEDS: Aspirin 81 mg Enteric Coated Tablet PO SCH (09:22)
[2018-06-12] MEDS: Saccharomyces boulardii 250 MG CAP PO SCH (09:23)
[2018-06-12] MEDS: Timolol 0.5% Ophth Soln 5 ml Bottle EA EYE SCH (09:23)
[2018-06-12] MEDS: Brinzolamide 1% Ophth Soln 10 ml Bottle EA EYE SCH ×3 (09:23→19:50)
--- NOTE | 2018-06-12 09:45 | PDOC.PN ---
- Subjective Encounter Start Date: 06/12/18 Encounter Start Time: 09:30 Feels generally well. No BM's since yesterday afternoon. No GI or abdominal symptoms. Reports his abdomen is feeling better every day. No other complaints. - Objective Resuscitation Status: Resuscitation Status FULL:Full Resuscitation Vital Signs & Weight: Vital Signs (12 hours) Temp Pulse Resp BP BP Pulse Ox 06/12/18 09:23 86 06/12/18 09:09 97.9 F 86 16 109/63 95 06/12/18 04:00 97.7 F 69 20 130/63 94 L Weight Admit Weight 190 lb Weight 177 lb Most Recent Monitor Data Heart Rate from ECG 65 NIBP 140/65 NIBP BP-Mean 90 Respiration from ECG 20 SpO2 97 I&O: 06/11/18 06/12/18 06/13/18 06:59 06:59 06:59 Intake Total 780 990 Output Total 1625 400 Balance -845 590 Result Diagrams: 06/12/18 04:33 06/12/18 04:33 Phys Exam - Physical Examination Constitutional: NAD Neck: no nodes, no JVD, supple Respiratory: no wheezing, no rales, no rhonchi, clear to auscultation bilateral Cardiovascular: RRR, no significant murmur Gastrointestinal: soft, non-tender, no distention, positive bowel sounds Slightly hyperactive BS. Musculoskeletal: no edema Neurological: non-focal Lymphatic: no nodes Psychiatric: normal affect, A&O x 3 Skin: no rash Dx/Plan (1) E. coli UTI Code(s): N39.0 - URINARY TRACT INFECTION, SITE NOT SPECIFIED; B96.20 - UNSP ESCHERICHIA COLI THE CAUSE OF DISEASES CLASSD ELSWHR Status: Resolved Comment: Likely due to recent catheter insertions and retention likely iatrogenic, continue Levaquin, Viera d/c'd. Voiding well. (2) Septic shock due to Escherichia coli Code(s): A41.51 - SEPSIS DUE TO ESCHERICHIA COLI [E. COLI]; R65.21 - SEVERE SEPSIS WITH SEPTIC SHOCK Status: Resolved Comment: Resolved, Cefepime d/c'd , Levaquin 750mg po daily (3) Physical deconditioning Code(s): R53.81 - OTHER MALAISE Status: Chronic Comment: PT for mobilization , Rehab options. Would like to return him to the [facility], but investigating the leukocytosis. 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 Wound looks good. (5) Hyponatremia Code(s): E87.1 - HYPO-OSMOLALITY AND HYPONATREMIA Status: Acute Comment: Improving. (6) Hypotension Status: Acute Comment: Stable. Only slightly low in the early mornings. DC' d Diltiazem and Flomax. Stopping the Hydrocortisone. (7) Acute metabolic encephalopathy Code(s): G93.41 - METABOLIC ENCEPHALOPATHY Status: Resolved Comment: Improved with tx for sepsis (8) Elevated troponin I level Code(s): R74.8 - ABNORMAL LEVELS OF OTHER SERUM ENZYMES Status: Resolved Comment: Likely due to demand ischemia in context of sepsis (9) Aortic stenosis, severe Code(s): I35.0 - NONRHEUMATIC AORTIC (VALVE) STENOSIS Status: Chronic Comment: Chronic, supportive mgmt. Careful fluid and BP management. Discussed with Dr. Cowart again this morning. No new interventions indicated. (10) Leukocytosis Code(s): D72.829 - ELEVATED WHITE BLOOD CELL COUNT, UNSPECIFIED Status: Acute Comment: Worsening daily. No fever and no overt signs or symptoms of infection. Negative CXR, UA and blood cultures. Thorough exam with no findings. ID consult appreciated. 5% metamyelocytes/myelocytes. Normal Bands. C diff negative. Adding LFT's to the morning labs. Stopping the Hydrocortisone. Hold Levaquin until seen by ID. Had negative UA and blood cultures from the . November DC it entirely if ok with ID. - Plan * Appears to be doing well and improving every day except for the leukocytosis. ID will follow up today.
[2018-06-12 09:52] LABS: ALT (SGPT) 38 U/L (8-55); AST (SGOT) 22 U/L (5-34); Albumin 3.7 g/dL (3.4-4.8); Alkaline Phosphatase 55 U/L (40-150); Bilirubin, Direct 0.3 mg/dL (0.1-0.3); Bilirubin, Total 0.8 mg/dL (0.2-1.2); Protein, Total 6.4 g/dL (5.8-8.1)
--- NOTE | 2018-06-12 13:49 | PRG ---
DATE OF SERVICE: 06/12/2018 SUBJECTIVE: He is feeling better today. He walked. A little bit tired now. No headaches. No sore throat, odynophagia or dysphagia. No dyspnea or chest pain. No more diarrhea. No abdominal sympto ms. OBJECTIVE: VITAL SIGNS: His temperature is normal. Other vital signs are not remarkable. GENERAL: He is awake, alert and oriented, in no distress. HEENT: Ocular movements are conjugate. LUNGS: Clear. HEART: S1, S2, regular rate. ABDOMEN: Soft, much less distended than yesterday. Bowel sounds are normal today. No bladder diste ntion. MUSCULOSKELETAL: No joint inflammatory activity. NEUROLOGIC: Nonfocal. LABORATORY DATA: White cell count is at 15.3, hemoglobin 12.8, MCV 92, platelets 360,000, 59% neutro phils, 7% bands, 16% lymphocytes, 4% metas and 1% myelocytes. ASSESSMENT: 1. Spinal stenosis with lumbar and cervical decompressive surgeries. 2. Escherichia coli bacteremia secondary to urinary tract infection with obstruction, which was talamantes sient. 3. Neutrophilia. 4. Presumptive adrenal insufficiency. 5. Abdominal distension. DISCUSSION: Clostridium difficile test was negative. He seems to be stabilizing and clinical findin gs are improving on a daily basis. It is possible that the neutrophilia was due to the corticosteroi ds plus the resolution of the acute infection with transition towards mature neutrophilic pattern in the peripheral blood count. I would advise discontinuation of the hydrocortisone, that is already im plemented. Consider discharge planning. Follow up in the outpatient setting.
[2018-06-12] MEDS: Calcium Carbonate 500 MG ChewTAB PO PRN (14:16)
[2018-06-12] MEDS: Mometasone Furoate 120 PUFF 220 MCG INH SCH (19:01)
[2018-06-12] MEDS: Loratadine 10 MG TAB PO PRN (19:49)
[2018-06-12] MEDS: Lorazepam 1 MG TAB PO PRN (19:50)
[2018-06-12] MEDS: Latanoprost 0.005% Ophth Soln 2.5 ml Bottle EA EYE SCH (19:50)
[2018-06-12] MEDS: Acetaminophen 325 MG TAB PO PRN (19:53)
[2018-06-13 08:57] LABS: Anion Gap 14 mmol/L (10-20); BUN (Urea Nitrogen) 14 mg/dL (8.4-25.7); Calc. Creatinine Clearance 74 mL/min (70-130); Calcium 9.4 mg/dL (7.8-10.44); Carbon Dioxide 24 mmol/L (23-31); Chloride 96 mmol/L (98-107); Estimated GFR-MDRD Greater than 90; Glucose 99 mg/dL (83-110); Sodium 130 mmol/L (136-145)
[2018-06-13] MEDS: Saccharomyces boulardii 250 MG CAP PO SCH (09:08)
[2018-06-13] MEDS: Aspirin 81 mg Enteric Coated Tablet PO SCH (09:08)
[2018-06-13] MEDS: Potassium Chloride 20 MEQ TAB PO SCH (09:08)
[2018-06-13] MEDS: Brinzolamide 1% Ophth Soln 10 ml Bottle EA EYE SCH (09:08)
[2018-06-13] MEDS: Timolol 0.5% Ophth Soln 5 ml Bottle EA EYE SCH (09:09)
[2018-06-13 09:30] LABS: Hemoglobin 14.9 g/dL (14.0-18.0); Mean Corpuscular Hemoglobin 31.4 pg (27.0-31.0); Mean Corpuscular Volume 92.4 fL (78.0-98.0); Mean Platelet Volume 5.9 fL (7.4-10.4); Platelet Count 441 thou/uL (130-400); RBC Distribution Width 12.7 % (11.5-14.5); Red Blood Cell (RBC) Count 4.73 mill/uL (4.70-6.10); White Blood Cell (WBC) Count 16.7 thou/uL (4.8-10.8)
[2018-06-13 10:48] LABS: Band 2 % (5-11); Eosinophils 4 % (0-10); Lymphocytes 8 % (21-51); MDiff Complete? YES; Monocytes 11 % (0-10); Neutrophil 66 % (42-75); PLT Morphology Comment Appears Increased; Polychromasia SLIGHT = 2-3 cells (100X) (0-2/hpf); Reactive Lymphocytes 9 % (0-10)
[2018-06-13 11:22] VITALS: BP 141/68; TEMP 97.2
[2018-06-13] MEDS: Acetaminophen 325 MG TAB PO PRN (12:55)
--- NOTE | 2018-06-13 22:42 | DIS ---
DATE OF ADMISSION: 06/02/2018 DATE OF DISCHARGE: 06/13/2018 DISCHARGE DIAGNOSES: 1. Sepsis. 2. Urinary tract infection with Escherichia coli. 3. Bacteremia with Escherichia coli. 4. Status post cervical laminectomy with spinal cord decompression. 5. Hyponatremia. 6. Hypotension. 7. Acute metabolic encephalopathy. 8. Elevated troponins. 9. Severe aortic stenosis. 10. Leukocytosis. HISTORY: This patient is an 88-year-old male who had undergone a cervical laminectomy with Neurosurg malcolm. He was then rehab, whenever he experienced acute altered mental status and lethargy. He was fo und to be significantly hypotensive. He was brought to the emergency department, where he had imagin g including chest x-ray, hip x-ray, pelvic x-ray, chest CT. He had evidence of likely septic shocks given his altered mental status and the hypotension. He received aggressive fluid resuscitation and was started on vancomycin and Levaquin for some evidence of urinary tract infection. He also had barby e mild hypokalemia. His troponins were slightly elevated as well. HOSPITAL COURSE: Patient was admitted into ICU had consultation with Pulmonary Critical Care. He riley d aggressive fluid resuscitation and had consultation with Cardiology, who felt the patient likely riley d demand ischemia secondary to septic shock. An echocardiogram was performed which revealed severe a ortic stenosis with a gradient of 56 mmHg, ejection fraction was estimated at 55% to 60%. He had mod erate elevated pulmonary artery pressures. The patient had evaluation by Dr. Vidal regarding potent ial urinary retention. Patient had been placed on some Flomax. He also experienced a brief electric al cardiac pause and Cardiology recommended holding his Cardizem, which the patient apparently had pr eviously been on for issues related to glaucoma. Once the patient's blood cultures returned and urin e cultures returned with Escherichia coli. He was kept on p.o. Levaquin. The patient remained fair ly stabilized and was transferred to the floor. On the floor, the patient continued to receive physi vesna therapy for rehabilitation services. His sodium remained a bit low and his blood pressures in th e morning were somewhat low as well. He started to develop a mild leukocytosis as well. He had init iation of hydrocortisone for possible adrenal insufficiency, given the hyponatremia and the low morni ng blood pressures. He did not seem to have a significant response with that. Therefore, ultimately the Flomax and the Cardizem were discontinued. His blood pressure did tend to respond more favorabl y with that. The patient did continue to have increased daily of his leukocytosis with some metamyel ocytes and myelocytes although the counts were low. He did not have significant bands. He remained afebrile. Repeat chest x-ray, blood cultures and urinalysis failed to reveal any source of infection and the patient appeared to be improving daily. When this trend continued, consulted ID. It was fe lt like the workup had been reasonable. He was concerned the patient might have had some C. diff and the C. diff was ordered and was negative. He felt that the patient's symptoms leukocytosis were lik vincenzo due to the hydrocortisone and delayed response to his original infection. I talked to the lawson viclhis, his and daughter who is a nurse practitioner at length regarding the situation and ultimately made the decision to go ahead and discharge the patient to home to continue to have outpatient CBC f ollow up. They understand that there is some possibility that some type of infection could still per sist, although or workup in his exam are unremarkable including his C-spine surgical wound. The narinder herrera has been on oral Levaquin throughout and we will continue to be on that at the time of discharge as well. The plan was originally to get home health to draw the patient's outpatient daily CBC, batres javon, that could not be confirmed at the time of discharge and an order was given for the patient to c ome get outpatient CBC here at the hospital should we not be able to successfully arrange the home he alth. PHYSICAL EXAMINATION: VITAL SIGNS: On the day of discharge, temperature is 97.2, pulse 66, respirations 15, O2 sat 98% on room air, BP 141/68. GENERAL: Patient is awake, alert, oriented, pleasant, cooperative, fully dressed, sitting up in his chair. DISCHARGE INSTRUCTIONS: Patient will be discharged to home. His activity as tolerated. He is on a regular diet. He will have Home Health for OT, PT and daily CBCs. DISCHARGE MEDICATIONS: He will be on aspirin 81 mg every day, levofloxacin 750 mg every day, Florast or 250 mg every day. He will continue his sildenafil, mometasone, lorazepam, Travatan, Betimol, Azop t, Rozerem, Tylenol, Dulcolax, Xalatan, Motrin, fluticasone, calcium, multivitamin, as he had previou sly taken and he can take his polyethylene glycol 17 grams every day p.r.n. The patient is to follow up with Dr. Trevino within 7 days and then come to follow up see the patient tomorrow. The ronald baxter understands that he can return to the hospital and anytime, should he have any complications pr ior to follow up.
--- NOTE | 2018-06-14 10:54 | PRG ---
DATE OF SERVICE: 06/14/2018 SUBJECTIVE: The patient was discharged yesterday, had followup CBC today to double check on his leuk ocytosis. His white count is down a bit today. He still has a few myelocytes and metamyelocytes. A lso, his platelet count is down. I called the patient, spoke with his daughter and the patient is do ing well today. I gave them the results. I have also discussed the situation with Dr. Trevino, who is his PCP. She will be reaching out to them to make a followup. The patient's daughter indicated t hey already have an appointment for him on Thursday. I would recommend one more CBC tomorrow; however, I will not be here and discussed that with the patient's daughter and they will reach out to Dr. Jesus zhao's office so that she can follow up on that.
== END 2018-06-13 15:44 | disposition home or self-care (01) | DRG 698 ==
LOC: ERS 07:28 → CCU 10:18 → IMCU/EMU 06-04 08:26 → 2NO 06-05 19:21
PROVIDERS: ADMIT Family Medicine; ATTEND Family Medicine
PROC: 3E033XZ Introduction of Vasopressor into Peripheral Vein, Percutaneous Approach (ICD-10-PCS; principal; 2018-06-02)
DX: T83.511A Infection and inflammatory reaction due to indwelling urethral catheter, initial encounter (principal); R65.21 Severe sepsis with septic shock; G93.41 Metabolic encephalopathy; A41.51 Sepsis due to Escherichia coli [E. coli]; I24.8 Other forms of acute ischemic heart disease; E87.1 Hypo-osmolality and hyponatremia; E27.40 Unspecified adrenocortical insufficiency; N39.0 Urinary tract infection, site not specified; I10 Essential (primary) hypertension; M54.16 Radiculopathy, lumbar region; M54.12 Radiculopathy, cervical region; E87.6 Hypokalemia; R33.8 Other retention of urine; I35.0 Nonrheumatic aortic (valve) stenosis; B96.20 Unspecified Escherichia coli [E. coli] as the cause of diseases classified elsewhere; R53.81 Other malaise; Z98.890 Other specified postprocedural states; I95.9 Hypotension, unspecified; D72.829 Elevated white blood cell count, unspecified; D72.0 Genetic anomalies of leukocytes
CPT/HCPCS: 36415; 36416; 51702; 70450; 71045; 71250; 72170; 80048; 80053; 80076; 81001; 81003; 81015; 82533; 82550; 82553; 82805; 83605; 83735; 84146; 84484; 85007; 85025; 85027; 87040; 87077; 87086; 87149; 87186; 87324; 87449; 90471; 90670; 93005; 93306; 94760; 96361; 96365; 96366; 96367; 96375; G0009; G8978-GP-CJ; G8978-GP-CM; G8979-GP-CI; G8979-GP-CK; G8987-GO-CK; G8988-GO-CI; J0692; J1956; J2405; J2543; J3370; J3480; J7050; S0028

== ENCOUNTER 2019-04-13 08:56 | Outpatient (CLI) | payer MEDICARE, BC ==
--- NOTE | 2019-04-13 10:52 | MRI ---
MRI Lumbar Spine W WO Con History: M [age] lumbar radiculopathy Comparison: MRI lumbar spine 2018 Findings: Large T2 hyperintense focus posterior cortex left kidney likely a cyst. The aortic contour is tortuous. Right inferior renal T2 hypertense small focus likely also a cyst. Mild bilateral paraspinal muscle atrophy, symmetric. Moderate dextroscoliosis. No marrow infiltrative process. Large anterior bridging osteophytes L3-L5. Conus medullaris terminates inferior endplate of L1. Levels are as follows: L1/L2: Moderate degenerative disc space height loss. Mild facet arthropathy. Moderate circumferential disc osteophyte complex greatest in the right lateral recess and subforaminal. Moderate right neural foraminal narrowing. Mild left neural foraminal narrowing. Spinal canal measures approximately 11 mm. L2/L3: Circumferential disc osteophyte complex, very large, extending into the lateral recess and sub foraminal zones. Severe left and moderate to severe right neural foraminal narrowing. Spinal canal is narrowed to approximately 5 mm. High-grade facet arthropathy. There is abutment of both traversing and the left exiting nerve root. L3/L4: Severe degenerative disc space height loss and. Large circumferential disc osteophyte complex. Ligamentum flavum hypertrophy. Spinal canal is narrowed to approximately 4 mm. Severe bilateral neural foraminal narrowing with abutment of both exiting and traversing nerve roots. L4/L5: Postsurgical change from right L4/L5 facetectomy with extensive scar along the right lateral r ecess and subforaminal zone extending along the right exiting and traversing nerve roots. Circumferential disc osteophyte complex. Severe bilateral neural foraminal narrowing. Impingement upo n both exiting nerve and traversing nerve roots. Spinal canal narrowed to approximately 4 mm. L5/S1: Moderate degenerative disc space height loss. Circumferential disc osteophyte complex, large. Severe facet arthropathy. Severe neural foraminal narrowing with abutment of the exiting and traversing nerve roots. Spinal canal not significant narrowed. Impression: 1. Multilevel severe spondylosis with neural foraminal and spinal canal narrowing as well as nerve ro ot abutment. 2. Extensive scar from right L4/L5 facetectomy with scar along the right L5 and L4 nerve roots.
== END 2019-04-13 08:57 | disposition home or self-care (01) ==
LOC: BICMRI 08:56
PROVIDERS: ATTEND Neurological Surgery
DX: M47.26 Other spondylosis with radiculopathy, lumbar region (principal); M48.061 Spinal stenosis, lumbar region without neurogenic claudication; L90.5 Scar conditions and fibrosis of skin; Z98.890 Other specified postprocedural states; Z96.659 Presence of unspecified artificial knee joint
CPT/HCPCS: 72158; 82565

== ENCOUNTER 2019-04-20 09:22 | Outpatient (CLI) | payer MEDICARE, BC ==
--- NOTE | 2019-04-20 10:57 | RAD ---
LUMBAR SPINE 2 VIEWS: Date: 04/20/19 HISTORY: Low back pain, M54.5. COMPARISON: MRI 04/13/19. FINDINGS: Moderate to severe dextroscoliosis of the lumbar spine with severe degenerative disc space changes at L4-5 and L5-S1. No acute fracture is appreciated. High grade facet arthrosis on the right at L3-S1. IMPRESSION: Severe dextroscoliosis and multilevel severe degenerative changes. POS: [facility]
--- NOTE | 2019-04-20 11:48 | BD ---
DEXA BONE DENSITY STUDY: Date: 04/20/19 COMPARISON: None. HISTORY: 89-year-old male with osteopenia. FINDINGS: Lumbar Spine: BMD (g/cm2) L1 0.800 T-Score: -2.5 L2 0.790 T-Score: -2.8 L3 1.034 T-Score: -0.6 L4 1.288 T-Score: 1.8 L1-L4 0.991 T-Score: -0.9 Femoral Neck: 0.506 T-Score: -3.1 Total Femur: 0.731 T-Score: -2.1 IMPRESSION: Osteoporosis. POS: [facility]
== END 2019-04-20 09:23 | disposition home or self-care (01) ==
LOC: BICMAMMO 09:22
PROVIDERS: ATTEND Orthopaedic Surgery
DX: Z13.820 Encounter for screening for osteoporosis (principal); M54.5 Low back pain; M81.0 Age-related osteoporosis without current pathological fracture; M47.816 Spondylosis without myelopathy or radiculopathy, lumbar region; M41.9 Scoliosis, unspecified
CPT/HCPCS: 72100; 77080

== ENCOUNTER 2019-05-23 12:46 | Outpatient (CLI) | payer MEDICARE, BC ==
--- NOTE | 2019-05-23 14:31 | RAD ---
THORACIC SPINE FRONTAL AND LATERAL IMAGIN05/23/2019 HISTORY: Age related osteoporosis. FINDINGS: There is atherosclerotic calcification in the aortic arch. Stent material overlies the cardiac silhou ette. The lateral examination demonstrates no anterolisthesis or retrolisthesis. No displaced fracture is e vident. The upper thoracic spine and cervicothoracic junction is not optimally assessed secondary to overlapping osseous structures. IMPRESSION: No displaced thoracic spine fracture. If there is high clinical concern for radio-occult fracture MRI may be beneficial. POS: [facility]
== END 2019-05-23 12:47 | disposition home or self-care (01) ==
LOC: BICRAD 12:46
PROVIDERS: ATTEND Internal Medicine Rheumatology
DX: M81.0 Age-related osteoporosis without current pathological fracture (principal)
CPT/HCPCS: 72070

== ENCOUNTER 2021-05-17 14:45 | Outpatient (CLI) | payer MEDICARE, BC | END 2021-05-17 14:46 | disposition home or self-care (01) | LOC: BICMAMMO 14:45 | PROVIDERS: ATTEND Internal Medicine Rheumatology | DX: M81.0 Age-related osteoporosis without current pathological fracture (principal) | CPT/HCPCS: 77080 ==

== ENCOUNTER 2021-08-12 20:54 | Inpatient (IN) | payer MEDICARE, BC ==
[2021-08-12] MEDS ORDERED: Morphine 4 MG/ML VIAL ONE ×2 (21:54→23:31)
[2021-08-12] MEDS ORDERED: Ondansetron PF 4 MG/2 ML Vial ONE (21:54)
[2021-08-12 22:00] LABS: #Basophils 0.1 thou/uL (0.0-0.2); #Eosinphils 0.6 thou/uL (0.0-0.7); #Lymphocytes 1.9 thou/uL (1.20-3.40); #Monocytes 1.6 thou/uL (0.11-0.59); #Neutrophils 10.2 thou/uL (1.40-6.50); %Basophils 0.5 % (0.0-1.0); %Eosinophils 4.1 % (0.0-10.0); %Lymphocytes 13.3 % (21.0-51.0); %Monocytes 11.1 % (0.0-10.0); Hemoglobin 15.4 g/dL (14.0-18.0); Mean Corpuscular HGB CONC 34.7 g/dL (32.0-36.0); Mean Corpuscular Hemoglobin 34.1 pg (27.0-31.0); Mean Corpuscular Volume 98.3 fL (78.0-98.0); Mean Platelet Volume 6.3 fL (7.4-10.4); Platelet Count 215 thou/uL (130-400); RBC Distribution Width 12.5 % (11.5-14.5); White Blood Cell (WBC) Count 14.3 thou/uL (4.8-10.8)
[2021-08-12 22:10] LABS: INR-International Normal Ratio 1.1; Prothrombin Time 13.8 sec (12.0-14.7)
[2021-08-12 22:11] LABS: PTT 36.1 sec (22.9-36.1)
[2021-08-12 22:25] LABS: ALT (SGPT) 13 U/L (8-55); AST (SGOT) 19 U/L (5-34); Albumin 4.3 g/dL (3.4-4.8); Alkaline Phosphatase 79 U/L (40-110); Anion Gap 15 mmol/L (10-20); BUN (Urea Nitrogen) 23 mg/dL (8.4-25.7); Bilirubin, Total 0.7 mg/dL (0.2-1.2); Calc. Creatinine Clearance 0 mL/min (70-130); Calcium 9.3 mg/dL (7.8-10.44); Carbon Dioxide 25 mmol/L (23-31); Chloride 101 mmol/L (98-107); Globulin 2.9 g/dL (2.4-3.5); Glucose 110 mg/dL (83-110); Potassium 4.5 mmol/L (3.5-5.1); Protein, Total 7.2 g/dL (5.8-8.1); Sodium 136 mmol/L (136-145)
[2021-08-12 22:34] LABS: Phosphorus 2.8 mg/dL (2.3-4.7)
[2021-08-12] MEDS ORDERED: hydrALAZINE 20 MG/ML VIAL SLOW IVP PRN (22:56)
[2021-08-12] MEDS ORDERED: Ondansetron PF 4 MG/2 ML Vial IVP PRN (22:56)
[2021-08-12] MEDS ORDERED: Dextrose 50% Abboject 50 ML SYRINGE SLOW IVP PRN (22:56)
[2021-08-12] MEDS ORDERED: Dextrose 5% in Water 1,000 ML IV PRN (22:56)
[2021-08-12] MEDS ORDERED: Fentanyl 100 MCG/2 ML VIAL ONE (22:59)
[2021-08-12] MEDS ORDERED: Sodium Chloride 0.9% 1,000 ML IV SCH (23:00)
[2021-08-12] MEDS ORDERED: traMADol HCl 50 MG TAB PO PRN (23:00)
[2021-08-12] MEDS ORDERED: Sodium Phosphate 15 MMOL in Sodium Chloride 0.9% 250 ML 250 ML IVPB SCH (23:59)
[2021-08-13] MEDS ORDERED: traMADol HCl 50 MG TAB ONE (00:38)
[2021-08-13] MEDS ORDERED: Acetaminophen 500 MG TAB ONE (00:38)
[2021-08-13] MEDS: Acetaminophen 500 MG TAB PO SCH ×3 (00:51→10:33)
[2021-08-13] MEDS: traMADol HCl 50 MG TAB PO PRN ×2 (00:52→06:24)
[2021-08-13] MEDS ORDERED: Morphine 4 MG/ML VIAL ONE ×2 (01:46→04:07)
[2021-08-13] MEDS: Morphine 4 MG/ML VIAL SLOW IVP PRN ×5 (01:54→23:43)
[2021-08-13 02:27] LABS: SARS-CoV-2 NAA Rapid Test Not Detected (NotDetected)
[2021-08-13 04:59] VITALS: BMI 23.0
[2021-08-13] MEDS: Cyclobenzaprine 10 MG TAB PO PRN ×2 (05:04→16:50)
[2021-08-13] MEDS ORDERED: Polyethylene Glycol 3350 17 GM Packet PO SCH (09:00)
[2021-08-13] MEDS ORDERED: Famotidine 20 MG TAB PO SCH (09:00)
[2021-08-13] MEDS: Senokot S 8.6-50 MG TAB PO SCH ×2 (09:47→21:20)
[2021-08-13] MEDS: Gabapentin 100 MG CAP PO SCH ×3 (09:47→21:20)
[2021-08-13] MEDS ORDERED: Non-Formulary Item 1 EACH (Sildenafil Citrate [Sildenafil Citrate] 20 MG Tablet) PO PRN (11:01)
[2021-08-13] MEDS ORDERED: Polyethylene Glycol 3350 17 GM Packet PO PRN (11:01)
[2021-08-13] MEDS: Acetaminophen/Codeine 30-300mg Tablet PO SCH ×2 (15:08→21:19)
[2021-08-13] MEDS: Acetaminophen 325 MG TAB PO SCH ×3 (15:08→23:43)
[2021-08-13] MEDS: Mometasone Furoate 30 PUFF 220 MCG INH SCH (21:38)
[2021-08-13] MEDS: Dorzolamide HCl 2% Ophth Soln 10 ml Bottle EA EYE SCH ×2 (23:33→23:57)
[2021-08-13] MEDS: Latanoprost 0.005% Ophth Soln 2.5 ml Bottle EA EYE SCH ×2 (23:33→23:57)
[2021-08-14] MEDS: Acetaminophen/Codeine 30-300mg Tablet PO SCH ×4 (02:11→19:36)
[2021-08-14] MEDS: Cyclobenzaprine 10 MG TAB PO PRN ×3 (04:38→19:58)
[2021-08-14] MEDS: Acetaminophen 325 MG TAB PO SCH ×4 (05:52→23:21)
[2021-08-14] MEDS: Morphine 4 MG/ML VIAL SLOW IVP PRN ×2 (05:57→22:22)
[2021-08-14] MEDS: Dorzolamide HCl 2% Ophth Soln 10 ml Bottle EA EYE SCH ×3 (08:52→19:38)
[2021-08-14] MEDS: Senokot S 8.6-50 MG TAB PO SCH ×2 (08:52→19:37)
[2021-08-14] MEDS: Multivit, Therapeutic 1 TAB PO SCH (08:52)
[2021-08-14] MEDS: Gabapentin 100 MG CAP PO SCH ×3 (08:52→19:37)
[2021-08-14] MEDS: Timolol 0.5% Ophth Soln 5 ml Bottle EA EYE SCH (08:55)
[2021-08-14] MEDS ORDERED: Dextrose 5% in Water 1,000 ML IV PRN ×2 (16:26→16:30)
[2021-08-14] MEDS ORDERED: Dextrose 50% Abboject 50 ML SYRINGE SLOW IVP PRN ×2 (16:26→16:30)
[2021-08-14] MEDS: Latanoprost 0.005% Ophth Soln 2.5 ml Bottle EA EYE SCH (19:38)
[2021-08-14] MEDS: Mometasone Furoate 30 PUFF 220 MCG INH SCH (19:45)
[2021-08-15] MEDS: Acetaminophen/Codeine 30-300mg Tablet PO SCH ×4 (01:56→20:38)
[2021-08-15] MEDS: Morphine 4 MG/ML VIAL SLOW IVP PRN ×4 (03:17→20:38)
[2021-08-15 05:30] LABS: #Basophils 0.1 thou/uL (0.0-0.2); #Eosinphils 0.2 thou/uL (0.0-0.7); #Lymphocytes 2.1 thou/uL (1.20-3.40); #Monocytes 1.9 thou/uL (0.11-0.59); #Neutrophils 10.6 thou/uL (1.40-6.50); %Basophils 0.3 % (0.0-1.0); %Eosinophils 1.6 % (0.0-10.0); %Lymphocytes 14.3 % (21.0-51.0); %Monocytes 12.6 % (0.0-10.0); %Neutrophils 71.1 % (42.0-75.0); Hemoglobin 13.8 g/dL (14.0-18.0); Mean Corpuscular Hemoglobin 33.8 pg (27.0-31.0); Mean Corpuscular Volume 99.4 fL (78.0-98.0); Mean Platelet Volume 6.7 fL (7.4-10.4); Platelet Count 179 thou/uL (130-400); RBC Distribution Width 12.5 % (11.5-14.5); Red Blood Cell (RBC) Count 4.07 mill/uL (4.70-6.10); White Blood Cell (WBC) Count 14.9 thou/uL (4.8-10.8)
[2021-08-15] MEDS: Acetaminophen 325 MG TAB PO SCH ×3 (05:55→17:48)
[2021-08-15] MEDS: Gabapentin 100 MG CAP PO SCH ×3 (08:43→20:40)
[2021-08-15] MEDS: Senokot S 8.6-50 MG TAB PO SCH ×2 (08:44→20:41)
[2021-08-15] MEDS: Dorzolamide HCl 2% Ophth Soln 10 ml Bottle EA EYE SCH ×3 (08:45→20:45)
[2021-08-15] MEDS: Multivit, Therapeutic 1 TAB PO SCH (08:45)
[2021-08-15] MEDS ORDERED: ceFAZolin 2 GM/Dextrose 50 ML 2 GM in Premix Bag 1 BAG IVPB SCH (09:15)
[2021-08-15] MEDS: Timolol 0.5% Ophth Soln 5 ml Bottle EA EYE SCH (10:08)
[2021-08-15] MEDS: Cyclobenzaprine 10 MG TAB PO PRN ×2 (15:48→20:40)
[2021-08-15] MEDS: Mometasone Furoate 30 PUFF 220 MCG INH SCH (20:36)
[2021-08-15] MEDS: Latanoprost 0.005% Ophth Soln 2.5 ml Bottle EA EYE SCH (20:44)
[2021-08-16] MEDS: Morphine 4 MG/ML VIAL SLOW IVP PRN ×2 (01:50→06:06)
[2021-08-16] MEDS: Acetaminophen 325 MG TAB PO SCH ×4 (01:53→18:14)
[2021-08-16] MEDS: Acetaminophen/Codeine 30-300mg Tablet PO SCH ×4 (01:54→20:29)
[2021-08-16] MEDS: Cyclobenzaprine 10 MG TAB PO PRN (06:06)
[2021-08-16 08:13] LABS: #Basophils 0.1 thou/uL (0.0-0.2); #Eosinphils 0.3 thou/uL (0.0-0.7); #Lymphocytes 2.1 thou/uL (1.20-3.40); #Neutrophils 11.8 thou/uL (1.40-6.50); %Basophils 0.4 % (0.0-1.0); %Eosinophils 1.7 % (0.0-10.0); %Lymphocytes 12.7 % (21.0-51.0); %Monocytes 12.5 % (0.0-10.0); %Neutrophils 72.7 % (42.0-75.0); Hemoglobin 14.5 g/dL (14.0-18.0); Mean Corpuscular HGB CONC 34.4 g/dL (32.0-36.0); Mean Corpuscular Hemoglobin 33.9 pg (27.0-31.0); Mean Corpuscular Volume 98.6 fL (78.0-98.0); Mean Platelet Volume 6.6 fL (7.4-10.4); Platelet Count 214 thou/uL (130-400); RBC Distribution Width 12.5 % (11.5-14.5); Red Blood Cell (RBC) Count 4.26 mill/uL (4.70-6.10); White Blood Cell (WBC) Count 16.2 thou/uL (4.8-10.8)
[2021-08-16 08:44] LABS: Anion Gap 17 mmol/L (10-20); BUN (Urea Nitrogen) 19 mg/dL (8.4-25.7); Calc. Creatinine Clearance 70 mL/min (70-130); Calcium 9.1 mg/dL (7.8-10.44); Carbon Dioxide 22 mmol/L (23-31); Chloride 97 mmol/L (98-107); Glucose 98 mg/dL (83-110); Sodium 132 mmol/L (136-145)
[2021-08-16] MEDS: Timolol 0.5% Ophth Soln 5 ml Bottle EA EYE SCH (09:00)
[2021-08-16] MEDS: Senokot S 8.6-50 MG TAB PO SCH ×2 (09:00→20:25)
[2021-08-16] MEDS: Multivit, Therapeutic 1 TAB PO SCH (09:00)
[2021-08-16] MEDS: Gabapentin 100 MG CAP PO SCH ×3 (09:50→20:24)
[2021-08-16] MEDS: Dorzolamide HCl 2% Ophth Soln 10 ml Bottle EA EYE SCH ×3 (09:52→20:30)
[2021-08-16] MEDS ORDERED: Fentanyl 100 MCG/2 ML VIAL ONE ×2 (11:00→14:31)
[2021-08-16] MEDS ORDERED: Lidocaine 2% PF 5 ML VIAL ONE (11:36)
[2021-08-16] MEDS ORDERED: Sodium Chloride 0.9% 10 ML ONE (11:36)
[2021-08-16] MEDS ORDERED: Ketamine 50 MG/ML (10ML VIAL) ONE (11:51)
[2021-08-16] MEDS ORDERED: Dexmedetomidine 200 MCG/2 ML VIAL ONE (11:53)
[2021-08-16] MEDS ORDERED: PROPOFOL 200 MG/20 ML VIAL ONE (12:08)
[2021-08-16] MEDS ORDERED: Ondansetron PF 4 MG/2 ML Vial ONE (12:08)
[2021-08-16] MEDS ORDERED: Dexamethasone 20 MG/5 ML VIAL ONE (12:08)
[2021-08-16] MEDS ORDERED: Rocuronium Bromide 10 MG/ML (10ML VIAL) ONE (12:08)
[2021-08-16] MEDS ORDERED: SUGAMMADEX SODIUM 200 MG/2 ML VIAL ONE (13:29)
[2021-08-16] MEDS ORDERED: Promethazine HCl 25 MG/ML VIAL IM PRN (13:47)
[2021-08-16] MEDS ORDERED: Ondansetron HCl/PF 4 MG/2 ML Vial IVP PRN (13:47)
[2021-08-16] MEDS ORDERED: Promethazine HCl 25 MG/ML VIAL IVPB PRN (13:47)
[2021-08-16] MEDS: Lactated Ringer's 500 ML IV SCH ×2 (15:40→19:44)
[2021-08-16] MEDS ORDERED: ceFAZolin 2 GM/Dextrose 50 ML 2 GM in Premix Bag 1 BAG IVPB SCH (17:00)
[2021-08-16] MEDS: Mometasone Furoate 30 PUFF 220 MCG INH SCH (18:22)
[2021-08-16] MEDS: Latanoprost 0.005% Ophth Soln 2.5 ml Bottle EA EYE SCH (20:26)
[2021-08-17] MEDS: Acetaminophen 325 MG TAB PO SCH ×4 (00:36→17:00)
[2021-08-17] MEDS: ceFAZolin 2 GM/Dextrose 50 ML 2 GM in Premix Bag 1 BAG IVPB SCH ×2 (01:32→08:11)
[2021-08-17] MEDS: Lactated Ringer's 500 ML IV SCH ×4 (02:25→23:13)
[2021-08-17] MEDS: Acetaminophen/Codeine 30-300mg Tablet PO SCH ×4 (02:43→20:23)
[2021-08-17] MEDS: Cyclobenzaprine 10 MG TAB PO PRN ×2 (03:12→11:43)
[2021-08-17] MEDS: Senokot S 8.6-50 MG TAB PO SCH ×2 (08:10→20:23)
[2021-08-17] MEDS: Multivit, Therapeutic 1 TAB PO SCH (08:11)
[2021-08-17] MEDS: Gabapentin 100 MG CAP PO SCH ×3 (08:16→20:23)
[2021-08-17] MEDS: Timolol 0.5% Ophth Soln 5 ml Bottle EA EYE SCH (08:19)
[2021-08-17] MEDS: Dorzolamide HCl 2% Ophth Soln 10 ml Bottle EA EYE SCH ×3 (08:20→20:24)
[2021-08-17 16:58] LABS: #Eosinphils 0.2 thou/uL (0.0-0.7); #Lymphocytes 1.1 thou/uL (1.20-3.40); #Monocytes 1.5 thou/uL (0.11-0.59); #Neutrophils 8.7 thou/uL (1.40-6.50); %Basophils 0.1 % (0.0-1.0); %Eosinophils 1.6 % (0.0-10.0); %Lymphocytes 9.5 % (21.0-51.0); %Monocytes 13.3 % (0.0-10.0); %Neutrophils 75.5 % (42.0-75.0); Hemoglobin 12.5 g/dL (14.0-18.0); Mean Corpuscular HGB CONC 34.2 g/dL (32.0-36.0); Mean Corpuscular Hemoglobin 33.5 pg (27.0-31.0); Mean Corpuscular Volume 97.8 fL (78.0-98.0); Mean Platelet Volume 6.2 fL (7.4-10.4); Platelet Count 229 thou/uL (130-400); RBC Distribution Width 12.2 % (11.5-14.5); Red Blood Cell (RBC) Count 3.73 mill/uL (4.70-6.10); White Blood Cell (WBC) Count 11.5 thou/uL (4.8-10.8)
[2021-08-17 17:22] LABS: Anion Gap 14 mmol/L (10-20); BUN (Urea Nitrogen) 26 mg/dL (8.4-25.7); Calc. Creatinine Clearance 73 mL/min (70-130); Calcium 8.6 mg/dL (7.8-10.44); Carbon Dioxide 22 mmol/L (23-31); Chloride 99 mmol/L (98-107); Glucose 125 mg/dL (83-110); Magnesium 2.1 mg/dL (1.6-2.6); Phosphorus 2.1 mg/dL (2.3-4.7); Potassium 3.6 mmol/L (3.5-5.1); Sodium 131 mmol/L (136-145)
[2021-08-17] MEDS: Latanoprost 0.005% Ophth Soln 2.5 ml Bottle EA EYE SCH (20:24)
[2021-08-17] MEDS: Morphine 4 MG/ML VIAL SLOW IVP PRN (22:03)
[2021-08-18] MEDS: Acetaminophen 325 MG TAB PO SCH ×4 (00:04→16:32)
[2021-08-18] MEDS: Acetaminophen/Codeine 30-300mg Tablet PO SCH ×4 (01:57→21:37)
[2021-08-18] MEDS: Mometasone Furoate 30 PUFF 220 MCG INH SCH ×2 (02:13→21:39)
[2021-08-18] MEDS: Lactated Ringer's 500 ML IV SCH ×2 (05:20→08:27)
[2021-08-18 07:24] LABS: Anion Gap 14 mmol/L (10-20); BUN (Urea Nitrogen) 24 mg/dL (8.4-25.7); Calc. Creatinine Clearance 75 mL/min (70-130); Calcium 8.4 mg/dL (7.8-10.44); Carbon Dioxide 23 mmol/L (23-31); Chloride 101 mmol/L (98-107); Glucose 97 mg/dL (83-110); Potassium 3.4 mmol/L (3.5-5.1); Sodium 135 mmol/L (136-145)
[2021-08-18 07:29] LABS: Phosphorus 1.8 mg/dL (2.3-4.7)
[2021-08-18] MEDS: Gabapentin 100 MG CAP PO SCH ×3 (08:26→21:36)
[2021-08-18] MEDS: Multivit, Therapeutic 1 TAB PO SCH (08:26)
[2021-08-18] MEDS: Dorzolamide HCl 2% Ophth Soln 10 ml Bottle EA EYE SCH ×3 (08:35→21:38)
[2021-08-18] MEDS: Timolol 0.5% Ophth Soln 5 ml Bottle EA EYE SCH (08:35)
[2021-08-18] MEDS ORDERED: PHOS-NAK 1 PKT PACK PO SCH (09:30)
[2021-08-18] MEDS: Senokot S 8.6-50 MG TAB PO SCH ×2 (10:29→21:37)
[2021-08-18] MEDS: Enoxaparin Sodium 40 MG/0.4 ML SYRINGE SC SCH (10:29)
[2021-08-18] MEDS: Cyclobenzaprine 10 MG TAB PO PRN (16:31)
[2021-08-18] MEDS: Latanoprost 0.005% Ophth Soln 2.5 ml Bottle EA EYE SCH (21:38)
[2021-08-19] MEDS: Acetaminophen 325 MG TAB PO SCH ×5 (00:14→23:06)
[2021-08-19] MEDS: Acetaminophen/Codeine 30-300mg Tablet PO SCH ×4 (02:42→21:00)
[2021-08-19 03:11] LABS: Anion Gap 13 mmol/L (10-20); BUN (Urea Nitrogen) 21 mg/dL (8.4-25.7); Calc. Creatinine Clearance 78 mL/min (70-130); Calcium 8.3 mg/dL (7.8-10.44); Carbon Dioxide 21 mmol/L (23-31); Chloride 101 mmol/L (98-107); Glucose 104 mg/dL (83-110); Phosphorus 2.1 mg/dL (2.3-4.7); Potassium 3.4 mmol/L (3.5-5.1); Sodium 132 mmol/L (136-145)
[2021-08-19] MEDS: Multivit, Therapeutic 1 TAB PO SCH (08:33)
[2021-08-19] MEDS: Gabapentin 100 MG CAP PO SCH (08:34)
[2021-08-19] MEDS: Enoxaparin Sodium 40 MG/0.4 ML SYRINGE SC SCH (08:34)
[2021-08-19] MEDS: Dorzolamide HCl 2% Ophth Soln 10 ml Bottle EA EYE SCH ×3 (08:35→21:08)
[2021-08-19] MEDS: Timolol 0.5% Ophth Soln 5 ml Bottle EA EYE SCH (08:35)
[2021-08-19] MEDS: Senokot S 8.6-50 MG TAB PO SCH ×2 (08:36→21:07)
[2021-08-19] MEDS: Cyclobenzaprine 10 MG TAB PO PRN (10:12)
[2021-08-19 10:56] LABS: SARS-CoV-2 PCR by NAA Not Detected (NotDetected)
[2021-08-19] MEDS: Mometasone Furoate 30 PUFF 220 MCG INH SCH (19:36)
[2021-08-19] MEDS ORDERED: Cyclobenzaprine 10 MG TAB PO SCH (21:00)
[2021-08-19] MEDS: Latanoprost 0.005% Ophth Soln 2.5 ml Bottle EA EYE SCH (21:08)
[2021-08-20] MEDS: Acetaminophen/Codeine 30-300mg Tablet PO SCH ×3 (01:18→15:43)
[2021-08-20] MEDS ORDERED: Melatonin 3 MG TAB PO PRN (01:54)
[2021-08-20] MEDS ORDERED: RisperDAL M-TAB 1 MG TAB SL SCH (02:00)
[2021-08-20] MEDS: Acetaminophen 325 MG TAB PO SCH ×2 (05:49→11:35)
[2021-08-20] MEDS: Enoxaparin Sodium 40 MG/0.4 ML SYRINGE SC SCH (09:35)
[2021-08-20] MEDS: Senokot S 8.6-50 MG TAB PO SCH (09:36)
[2021-08-20] MEDS: Multivit, Therapeutic 1 TAB PO SCH (09:36)
[2021-08-20] MEDS: Dorzolamide HCl 2% Ophth Soln 10 ml Bottle EA EYE SCH ×2 (09:36→16:16)
[2021-08-20] MEDS: Timolol 0.5% Ophth Soln 5 ml Bottle EA EYE SCH (09:37)
[2021-08-20 15:34] VITALS: BP 157/64; TEMP 98.1
[2021-08-20] MEDS ORDERED: Cilostazol 100 MG TAB PO SCH (16:30)
[2021-08-20] MEDS ORDERED: Melatonin 3 MG TAB PO SCH (21:00)
== END 2021-08-20 16:45 | DRG 481 ==
LOC: ERS 20:54 → ERHOLD 23:01 → SJJU 08-13 04:27
PROVIDERS: ADMIT Specialist; ATTEND Surgery
PROC: 0QS8XZZ Reposition Right Femoral Shaft, External Approach (ICD-10-PCS; 2021-08-12)
PROC: 0QS806Z Reposition Right Femoral Shaft with Intramedullary Internal Fixation Device, Open Approach (ICD-10-PCS; principal; 2021-08-16)
DX: S72.301A Unspecified fracture of shaft of right femur, initial encounter for closed fracture (principal); R44.3 Hallucinations, unspecified; E87.1 Hypo-osmolality and hyponatremia; Z20.822 Contact with and (suspected) exposure to COVID-19; H40.9 Unspecified glaucoma; R33.9 Retention of urine, unspecified; I10 Essential (primary) hypertension; M19.90 Unspecified osteoarthritis, unspecified site; T48.1X5A Adverse effect of skeletal muscle relaxants [neuromuscular blocking agents], initial encounter; T42.6X5A Adverse effect of other antiepileptic and sedative-hypnotic drugs, initial encounter; W18.30XA Fall on same level, unspecified, initial encounter; Z96.651 Presence of right artificial knee joint; H54.7 Unspecified visual loss; Z95.2 Presence of prosthetic heart valve; Z98.49 Cataract extraction status, unspecified eye; Z79.899 Other long term (current) drug therapy; Z91.041 Radiographic dye allergy status; Z91.013 Allergy to seafood
CPT/HCPCS: 0240U; 27502; 36415; 51702; 71045; 76000; 80048; 80053; 83735; 84100; 85025; 85610; 85730; 86850; 86900; 86901; 93005; 96374; 96375; 96376; 99152; C1713; G0390; J0690; J1100; J1650; J2001; J2270; J2405; J2704; J3010; J7030; J7050; U0003; U0005